=== PATIENT | male | born 1960 | race Caucasian/White ===

== ENCOUNTER 2017-08-22 10:40 | Inpatient (IN) | payer MEDICAID, OTHER ==
[2017-08-22] MEDS ORDERED: Sodium Chloride 0.9% 1,000 ML IV STA (11:27)
[2017-08-22] MEDS ORDERED: Morphine 4 mg/ml ISec IVP STA (11:27)
[2017-08-22 12:34] LABS: ALB/GLOB RATIO 1.5 (1.1-1.8); ALKALINE PHOSPHATASE 85 U/L (38-126); ALT/SGPT 45 U/L (7-56); AMYLASE 103 U/L (35-125); AST/SGOT 84 U/L (17-59); BILIRUBIN,TOTAL 1.9 mg/dL (0.2-1.3); BLOOD UREA NITROGEN 13 mg/dL (7-21); CALCIUM 8.9 mg/dL (8.4-10.5); CARBON DIOXIDE 31 mmol/L (21-33); CHLORIDE 102 mmol/L (98-107); GFR AFRICAN-AMERICAN > 60; GLUCOSE,RANDOM 123 mg/dL (70-110); LIPASE 98 U/L (23-300); POTASSIUM 3.7 mmol/L (3.6-5.0); SODIUM 141 mmol/L (132-148); TOTAL PROTEIN 6.5 g/dL (5.8-8.3)
[2017-08-22 12:46] LABS: BASO # 0.01 K/mm3 (0.0-2.0); BASO % 0.1 % (0.0-3.0); EOS # 0.1 (0.0-0.7); EOS % 1.4 % (1.5-5.0); GRAN # 5.19 (1.4-6.5); GRAN % 72.3 % (50.0-68.0); HEMATOCRIT 39.4 % (42.0-52.0); LYMPH # 1.5 (1.2-3.4); LYMPH % 20.8 % (22.0-35.0); MEAN CELL VOLUME 85.1 fl (80.0-105.0); MEAN CORPUSCULAR HEMOGLOBIN 30.5 pg (25.0-35.0); MEAN CORPUSCULAR HGB CONC 35.8 g/dl (31.0-37.0); MEAN PLATELET VOLUME 11.7 fl (7.0-11.0); MONO # 0.4 (0.1-0.6); MONO % 5.4 % (1.0-6.0); RED CELL DISTRIBUTION WIDTH 12.3 % (11.5-14.5); WHITE BLOOD COUNT 7.2 10^3/ul (4.5-11.0)
[2017-08-22 12:50] LABS: TROPONIN I < 0.01 ng/mL
--- NOTE | 2017-08-22 12:50 | RAD ---
HISTORY: epigastric pain COMPARISON: No prior. FINDINGS: LUNGS: No active pulmonary disease. PLEURA: No significant pleural effusion identified, no pneumothorax apparent. CARDIOVASCULAR: Normal. OSSEOUS STRUCTURES: No significant abnormalities. VISUALIZED UPPER ABDOMEN: Normal. OTHER FINDINGS: None. IMPRESSION: No active disease.
--- NOTE | 2017-08-22 13:00 | ED PDOC ---
Arrival/HPI - General Chief Complaint: Abdominal Pain Time Seen by Provider: 08/22/17 11:09 Historian: Patient - History of Present Illness Narrative History of Present Illness (Text): 08/22/17 13:16 Patient c/o upper abdominal pain started for 4-5 days, associated with nausea. Patient denies vomiting/diarrhea/fever/chest pain/sob/fever. Symptom Course: Unchanged Quality: Aching Severity Level: 8 Past Medical History - Provider Review Nursing Documentation Reviewed: Yes - Infectious Disease Hx of Infectious Diseases: None - Tetanus Immunization Tetanus Immunization: Unknown - Cardiac Hx Cardiac Disorders: Yes Hx Hypertension: Yes - Pulmonary Hx Respiratory Disorders: No - Neurological Hx Neurological Disorder: Yes (brain aneurysm) - HEENT Hx HEENT Disorder: No - Renal Hx Renal Disorder: No - Endocrine/Metabolic Hx Endocrine Disorders: No - Hematological/Oncological Hx Blood Disorders: Yes Hx Anemia: Yes Hx Blood Transfusions: Yes Hx Blood Transfusion Reaction: No - Integumentary Hx Dermatological Disorder: No - Musculoskeletal/Rheumatological Hx Musculoskeletal Disorders: No - Gastrointestinal Hx Gastrointestinal Disorders: No - Genitourinary/Gynecological Hx Genitourinary Disorders: No - Psychiatric Hx Psychophysiologic Disorder: No Hx Substance Use: No - Surgical History Other/Comment: aneurysm- brain - Anesthesia Hx Anesthesia: Yes Hx Anesthesia Reactions: No Hx Malignant Hyperthermia: No Family/Social History Family/Social History: No Known Family HX Smoking Status: Former Smoker Hx Alcohol Use: No Hx Substance Use: No Allergies/Home Meds Allergies/Adverse Reactions: Allergies No Known Allergies Allergy (Verified 08/22/17 11:19) Home Medications: Home Meds Medication Instructions Recorded Confirmed Unobtainable 08/22/17 08/22/17 Review of Systems - Physician Review All systems were reviewed & negative as marked: Yes - Review of Systems Gastrointestinal: Abdominal Pain, Nausea Physical Exam Vital Signs Reviewed: No Vital Signs Temp Pulse Resp BP Pulse Ox 08/22/17 15:50 68 159/97 H 08/22/17 11:20 98 F 65 16 161/98 H 97 Temperature: Afebrile Blood Pressure: Hypertensive Pulse: Regular Respiratory Rate: Normal Appearance: Positive for: Non-Toxic, Uncomfortable Pain Distress: Mild Mental Status: Positive for: Alert and Oriented X 3 - Systems Exam Head: Present: Atraumatic, Normocephalic Pupils: Present: PERRL Mouth: Present: Moist Mucous Membranes Neck: Present: Normal Range of Motion Respiratory/Chest: Present: Clear to Auscultation, Good Air Exchange. No: Respiratory Distress Cardiovascular: Present: Regular Rate and Rhythm Abdomen: Present: Tenderness (epigastric, RUQ), Guarding, Other (pos Lee sign ). No: Distention Upper Extremity: Present: Normal Inspection, Normal ROM. No: Edema Lower Extremity: Present: Normal Inspection, NORMAL PULSES. No: Edema, Swelling Neurological: Present: Speech Normal, Motor Func Grossly Intact, Normal Sensory Function Skin: Present: Warm, Dry. No: Rashes Psychiatric: Present: Alert, Oriented x 3, Normal Insight Medical Decision Making ED Course and Treatment: 08/22/17 16:40 Case was d/w patient's PMD who instructed to admit to Hospitalist. Case was d/w Surgeon national sales who requested residential worker to evaluate this patient. Case was d/w Hospitalist Dr. Moses who accepted patient for admission. - Lab Interpretations Lab Results: 08/22/17 12:10 08/22/17 12:10 Lab Results 08/22/17 12:50: PT 10.6, INR 0.98, APTT 30.6 08/22/17 12:10: Sodium 141, Potassium 3.7, Chloride 102, Carbon Dioxide 31, Anion Gap 12, BUN 13, Creatinine 0.8, Est GFR ( Amer) > 60, Est GFR (Non- Af Amer) > 60, Random Glucose 123 H, Calcium 8.9, Total Bilirubin 1.9 H, AST 84 H, ALT 45, Alkaline Phosphatase 85, Troponin I < 0.01 D, Total Protein 6.5, Albumin 3.9, Globulin 2.6, Albumin/Globulin Ratio 1.5, Amylase 103, Lipase 98 08/22/17 12:10: WBC 7.2 D, RBC 4.63, Hgb 14.1, Hct 39.4 L, MCV 85.1, MCH 30.5, MCHC 35.8, RDW 12.3, Plt Count 161, MPV 11.7 H, Gran % 72.3 H, Lymph % (Auto) 20.8 L, [place] % (Auto) 5.4, Eos % (Auto) 1.4 L, Baso % (Auto) 0.1, Gran # 5.19, Lymph # 1.5, [place] # 0.4, Eos # 0.1, Baso # 0.01 - RAD Interpretation Radiology Orders: 08/22/17 11:25 CHEST PORTABLE [RAD] Stat 08/22/17 11:26 ABDOMEN COMPLETE [US] Stat - Medication Orders Current Medication Orders: Discontinued Medications Clonidine HCl (Catapres) 0.2 mg PO STAT STA Stop: 08/22/17 15:22 Last Admin: 08/22/17 15:50 Dose: MAR Pulse and Blood Pressure Document 08/22/17 15:50 NH (Rec: 08/22/17 15:50 NH [id number]) Pulse Pulse Rate (60-90) 68 Blood Pressure Blood Pressure (100/60-150/90) 159/97 Sodium Chloride (Sodium Chloride 0.9%) 1,000 mls @ 999 mls/hr IV .Q1H1M STA Stop: 08/22/17 12:27 Last Admin: 08/22/17 11:58 Dose: 999 mls/hr eMAR Start Stop Document 08/22/17 11:58 MR (Rec: 08/22/17 11:58 MR [id number]) Intravenous Solution Start Date 08/22/17 Start Time 11:58 End Date 08/22/17 End time 12:58 Total Infusion Time 60 Morphine Sulfate (Morphine) 4 mg IVP STAT STA Stop: 08/22/17 11:28 Last Admin: 08/22/17 11:58 Dose: Not Given Non-Admin Reason: Patient Refused Pantoprazole Sodium (Protonix Inj) 40 mg IVP STAT STA Stop: 08/22/17 11:28 Last Admin: 08/22/17 11:57 Dose: 40 mg IVP Administration Document 08/22/17 11:57 MR (Rec: 08/22/17 11:57 MR [id number]) Charges for Administration # of IVP Administrations 1 Disposition/Present on Arrival - Present on Arrival Any Indicators Present on Arrival: No History of DVT/PE: No History of Uncontrolled Diabetes: No Urinary Catheter: No History of Decub. Ulcer: No History Surgical Site Infection Following: None - Disposition Have Diagnosis and Disposition been Completed?: Yes Diagnosis: Cholecystitis Disposition: HOSPITALIZED Disposition Time: 16:43 Condition: FAIR Referrals: Ant Villalpando MD [Primary Care Provider] - Follow up with primary Forms: [employer] (Citizen Of [place])
[2017-08-22 13:03] LABS: INR 0.98 (0.93-1.08); PARTIAL THROMBOPLASTIN TIME 30.6 Seconds (23.7-30.8)
--- NOTE | 2017-08-22 14:53 | US ---
HISTORY: upper abdominal pain COMPARISON: None. TECHNIQUE: Sonographic evaluation of the abdomen. FINDINGS: LIVER: Measures 18.3 cm. Diffusely increased echogenicity of the liver parenchyma. Consistent with mild diffuse fatty infiltration of the liver. No focal mass. Smooth contour. No biliary ductal dilatation. GALLBLADDER: Cholelithiasis. Mural thickening up to 5 mm. No pericholecystic fluid. No sonographic Lee sign. Findings are equivocal for cholecystitis. COMMON BILE DUCT: Measures 5 mm. No stones. No dilatation. PANCREAS: Unremarkable as visualized. No mass. No ductal dilatation. RIGHT KIDNEY: Measures 10.1cm. Normal echogenicity. No calculus, mass, or hydronephrosis. LEFT KIDNEY: Measures 10.6cm. Normal echogenicity. No calculus, mass, or hydronephrosis. SPLEEN: Normal in size and contour. No mass. AORTA: No aneurysmal dilatation. IVC: Unremarkable. OTHER FINDINGS: None. IMPRESSION: Cholelithiasis with mural thickening but no pericholecystic fluid or sonographic Lee sign. The findings are equivocal for cholecystitis. Mild hepatomegaly with fatty infiltration of the liver. No evidence of biliary obstruction.
[2017-08-22] MEDS ORDERED: Piperacillin/Tazobact 3.375 gm 100 ML IVPB STA (16:44)
--- NOTE | 2017-08-22 17:00 | CP.PCM.CON ---
History of Present Illness - History of Present Illness History of Present Illness: Surgery Note for Dr. Connelly HPI: Pt was seen and examined at bedside. Pt is a 57 y/o male who presents to the ED for a constant and localized epigastric pain which has progressivley worsened since Saturday night. Pt states that the pain worsens with eating and any increased abd pressure. Pt admits to passing gas earlier today and last ate at 10 in the morning. Pt denies any n/v/c/d/hematemesis/hematochezia. According to the family, this is the first episode of this type of pain. PMH: HTN, Brain aneurysm, DVT PSH: Evacuation of hematoma in the brain Review of Systems - Constitutional Constitutional: absent: Fever, Headache - Gastrointestinal Gastrointestinal: Abdominal Pain, Dysphagia. absent: Constipation, Diarrhea, Nausea, Vomiting Past Patient History - Infectious Disease Hx of Infectious Diseases: None - Tetanus Immunizations Tetanus Immunization: Unknown - Past Medical History & Family History Past Medical History?: Yes - Past Social History Smoking Status: Former Smoker - CARDIAC Hx Cardiac Disorders: Yes Hx Hypertension: Yes - PULMONARY Hx Respiratory Disorders: No - NEUROLOGICAL Hx Neurological Disorder: Yes (brain aneurysm) - HEENT Hx HEENT Problems: No - RENAL Hx Chronic Kidney Disease: No - ENDOCRINE/METABOLIC Hx Endocrine Disorders: No - HEMATOLOGICAL/ONCOLOGICAL Hx Blood Disorders: Yes Hx Anemia: Yes Hx Blood Transfusions: Yes Hx Blood Transfusion Reaction: No - INTEGUMENTARY Hx Dermatological Problems: No - MUSCULOSKELETAL/RHEUMATOLOGICAL Hx Musculoskeletal Disorders: No - GASTROINTESTINAL Hx Gastrointestinal Disorders: No - GENITOURINARY/GYNECOLOGICAL Hx Genitourinary Disorders: No - PSYCHIATRIC Hx Psychophysiologic Disorder: No Hx Substance Use: No - SURGICAL HISTORY Other/Comment: aneurysm- brain - ANESTHESIA Hx Anesthesia: Yes Hx Anesthesia Reactions: No Hx Malignant Hyperthermia: No Meds Allergies/Adverse Reactions: Allergies Allergy/AdvReac Type Severity Reaction Status Date / Time No Known Allergies Allergy Verified 08/22/17 11:19 - Medications Medications: Current Medications Piperacillin Sod/Tazobactam Sod (Zosyn 3.375 In Ns 100ml) 100 mls @ 200 mls/hr IVPB STAT STA PRN Reason: Protocol Stop: 08/22/17 17:13 Physical Exam - Constitutional Appears: Well, Non-toxic, No Acute Distress - Head Exam Head Exam: ATRAUMATIC, NORMAL INSPECTION, NORMOCEPHALIC - ENT Exam ENT Exam: Mucous Membranes Moist - Respiratory Exam Respiratory Exam: Clear to Auscultation Bilateral, NORMAL BREATHING PATTERN - Cardiovascular Exam Cardiovascular Exam: REGULAR RHYTHM, +S1, +S2 - GI/Abdominal Exam GI & Abdominal Exam: Normal Bowel Sounds, Tenderness. absent: Distended, Firm, Guarding, Hernia, Rigid Additional comments: Positive Lee's sign - Extremities Exam Extremities exam: Positive for: full ROM, normal inspection - Back Exam Back exam: NORMAL INSPECTION - Neurological Exam Neurological exam: Alert, CN II-XII Intact, Normal Gait, Oriented x3, Reflexes Normal - Psychiatric Exam Psychiatric exam: Normal Affect, Normal Mood - Skin Skin Exam: Dry, Intact, Normal Color Results - Vital Signs Recent Vital Signs: Last Vital Signs Temp 98 F 08/22/17 11:20 Pulse 68 08/22/17 15:50 Resp 16 08/22/17 11:20 BP 159/97 H 08/22/17 15:50 Pulse Ox 97 08/22/17 11:20 - Labs Result Diagrams: 08/22/17 12:10 08/22/17 12:10 Labs: Laboratory Results - last 24 hr 08/22/17 08/22/17 08/22/17 12:10 12:10 12:50 WBC 7.2 D RBC 4.63 Hgb 14.1 Hct 39.4 L MCV 85.1 MCH 30.5 MCHC 35.8 RDW 12.3 Plt Count 161 MPV 11.7 H Gran % 72.3 H Lymph % (Auto) 20.8 L [place] % (Auto) 5.4 Eos % (Auto) 1.4 L Baso % (Auto) 0.1 Gran # 5.19 Lymph # 1.5 [place] # 0.4 Eos # 0.1 Baso # 0.01 PT 10.6 INR 0.98 APTT 30.6 Sodium 141 Potassium 3.7 Chloride 102 Carbon Dioxide 31 Anion Gap 12 BUN 13 Creatinine 0.8 Est GFR ( Amer) > 60 Est GFR (Non-Af Amer) > 60 Random Glucose 123 H Calcium 8.9 Total Bilirubin 1.9 H AST 84 H ALT 45 Alkaline Phosphatase 85 Troponin I < 0.01 D Total Protein 6.5 Albumin 3.9 Globulin 2.6 Albumin/Globulin Ratio 1.5 Amylase 103 Lipase 98 Assessment & Plan (1) Cholecystitis Status: Acute - Assessment and Plan (Free Text) Assessment: 57 M w Cholelithiasis VSS NO leukocytosis -NPO -IVF -Mohinder -DONY Concepcion - Date & Time Date: 08/22/17 Time: 17:05
[2017-08-22] MEDS ORDERED: Sodium Chloride 0.9% 1,000 ML IV ONE (17:11)
[2017-08-22] MEDS ORDERED: HYDROmorphone 0.5 mg/0.5 ml ISec IVP PRN (17:12)
[2017-08-22] MEDS ORDERED: Metoprolol 1 mg/ml Inj IVP PRN (17:19)
--- NOTE | 2017-08-22 17:37 | CARD ---
APPROVED REPORT EKG Measurement Heart [id number] <Conclusion> Normal sinus rhythm with sinus arrhythmia Moderate voltage criteria for LVH, may be normal variant ST elevation, consider early repolarization, pericarditis, or injury Abnormal ECG
--- NOTE | 2017-08-22 17:40 | CP.PCM.HP ---
<Cong Baugh - Last Filed: 08/22/17 18:26> History of Present Illness - History of Present Illness History of Present Illness: 57 year old male with PMH of brain aneurysm with clipping and HTN presents with 5 day history of non radiating epigastric pain. PAtient states he has never felt this pain before. Patient states the pain began on Saturday when it was a 7 /10 and today it went up to 10/10 which prompted him to come to the hospital. He describes the pain as "pressure" and denies any radiation to the back. He states the pain is worse with laughter and with food. His last meal was rice pudding which he had around 10 am. He did not take anything to help alleviate the pain. He denies any SOB, CP, N/F/D/F/C, fever, sore throat, revent travel, sick contacts or any other complains. PMH: brain aneurysm 3 years ago, HTN PSH: clipping of aneurysm in brain Allergies: NKDA Fam HX: none significant Social: denies alcohol, tobacco, or illicit drug use Medications: See MAR Present on Admission - Present on Admission Any Indicators Present on Admission: No Review of Systems - Constitutional Constitutional: absent: Anorexia, Chills, Fatigue, Fever, Headache, Lethargy, Malaise, Weakness - EENT Eyes: absent: Blurred Vision, Change in Vision Ears: absent: Decreased Hearing Nose/Mouth/Throat: absent: Nasal Congestion, Nasal Discharge, Sore Throat - Cardiovascular Cardiovascular: absent: Chest Pain, Diaphoresis, Dyspnea, Irregular Heart Rhythm , Pain Radiating to Arm/Neck/Jaw, Lightheadedness, Rapid Heart Rate - Respiratory Respiratory: absent: Dyspnea, Wheezing, Chest Congestion - Gastrointestinal Gastrointestinal: Abdominal Pain. absent: Constipation, Diarrhea, Dysphagia, Nausea, Vomiting Additional comments: Complains of mid epigastric pain - Genitourinary Genitourinary: absent: Change in Urinary Stream, Difficulty Urinating, Dysuria - Musculoskeletal Musculoskeletal: absent: Muscle Weakness, Numbness, Tingling - Integumentary Integumentary: absent: Rash - Neurological Neurological: absent: Abnormal Hearing, Disequilibrium, Numbness, Headaches, Paresthesias, Tingling, Vertigo, Weakness Past Patient History - Infectious Disease Hx of Infectious Diseases: None - Tetanus Immunizations Tetanus Immunization: Unknown - Past Medical History & Family History Past Medical History?: Yes - Past Social History Smoking Status: Former Smoker - CARDIAC Hx Cardiac Disorders: Yes Hx Hypertension: Yes - PULMONARY Hx Respiratory Disorders: No - NEUROLOGICAL Hx Neurological Disorder: Yes (brain aneurysm) - HEENT Hx HEENT Problems: No - RENAL Hx Chronic Kidney Disease: No - ENDOCRINE/METABOLIC Hx Endocrine Disorders: No - HEMATOLOGICAL/ONCOLOGICAL Hx Blood Disorders: Yes Hx Anemia: Yes Hx Blood Transfusions: Yes Hx Blood Transfusion Reaction: No - INTEGUMENTARY Hx Dermatological Problems: No - MUSCULOSKELETAL/RHEUMATOLOGICAL Hx Musculoskeletal Disorders: No - GASTROINTESTINAL Hx Gastrointestinal Disorders: No - GENITOURINARY/GYNECOLOGICAL Hx Genitourinary Disorders: No - PSYCHIATRIC Hx Psychophysiologic Disorder: No Hx Substance Use: No - SURGICAL HISTORY Other/Comment: aneurysm- brain - ANESTHESIA Hx Anesthesia: Yes Hx Anesthesia Reactions: No Hx Malignant Hyperthermia: No Meds Allergies/Adverse Reactions: Allergies Allergy/AdvReac Type Severity Reaction Status Date / Time No Known Allergies Allergy Verified 08/22/17 11:19 Physical Exam - Constitutional Appears: Non-toxic, No Acute Distress - Head Exam Head Exam: ATRAUMATIC, NORMAL INSPECTION, NORMOCEPHALIC - Eye Exam Eye Exam: EOMI, Normal appearance, PERRL - ENT Exam ENT Exam: Mucous Membranes Moist, Normal Exam - Neck Exam Neck exam: Positive for: Normal Inspection. Negative for: Lymphadenopathy, Thyromegaly - Respiratory Exam Respiratory Exam: Clear to Auscultation Bilateral, NORMAL BREATHING PATTERN - Cardiovascular Exam Cardiovascular Exam: REGULAR RHYTHM, +S1, +S2 - GI/Abdominal Exam GI & Abdominal Exam: Rebound, Tenderness Additional comments: Tenderness to palpation in mid epigastric region, positive rebound tenderness, positive medina sign - Extremities Exam Extremities exam: Positive for: normal inspection - Back Exam Back exam: NORMAL INSPECTION - Neurological Exam Neurological exam: Alert, Oriented x3 - Skin Skin Exam: Normal Color Results - Vital Signs Recent Vital Signs: Last Vital Signs Temp 98 F 08/22/17 11:20 Pulse 68 08/22/17 15:50 Resp 16 08/22/17 11:20 BP 159/97 H 08/22/17 15:50 Pulse Ox 97 08/22/17 11:20 - Labs Result Diagrams: 08/22/17 12:10 08/22/17 12:10 Labs: Laboratory Results - last 24 hr 08/22/17 08/22/17 08/22/17 12:10 12:10 12:50 WBC 7.2 D RBC 4.63 Hgb 14.1 Hct 39.4 L MCV 85.1 MCH 30.5 MCHC 35.8 RDW 12.3 Plt Count 161 MPV 11.7 H Gran % 72.3 H Lymph % (Auto) 20.8 L [place] % (Auto) 5.4 Eos % (Auto) 1.4 L Baso % (Auto) 0.1 Gran # 5.19 Lymph # 1.5 [place] # 0.4 Eos # 0.1 Baso # 0.01 PT 10.6 INR 0.98 APTT 30.6 Sodium 141 Potassium 3.7 Chloride 102 Carbon Dioxide 31 Anion Gap 12 BUN 13 Creatinine 0.8 Est GFR ( Amer) > 60 Est GFR (Non-Af Amer) > 60 Random Glucose 123 H Calcium 8.9 Total Bilirubin 1.9 H AST 84 H ALT 45 Alkaline Phosphatase 85 Troponin I < 0.01 D Total Protein 6.5 Albumin 3.9 Globulin 2.6 Albumin/Globulin Ratio 1.5 Amylase 103 Lipase 98 Assessment & Plan - Assessment and Plan (Free Text) Assessment: 57 yo mlae with PMH of brain aneurysm, HTN presenting with mid epigastric pain for 5 days. Patient admitted and evaluated for abdominal pain and possible cholecystitis. Plan: 1. Epigastric pain-possible cholecystitis -EKG ordered and obtained, NSR with sinus arythmia, LVH moderate voltage maybe normal variant, ST elevation, consider early repolarization, pericarditis, or injury, abnormal ECG -Initial troponin negative, follow up additional if needed -Abdominal US showing cholelithiasis, mural thickening without pericholecystic fluid, equivalent cholecystitis -Patient NPO -hydromorphone for pain -D5W @125 -Surgery consulted, Dr. Connelly -Labs ordered, normal electrolytes -HH stable -started on rocephin and metronidazole -HIDA scan ordred per surgery, awaiting results 2. HTN- chronic -BP 159/97 -started on lopressor 5 Q6 PRN -continue to monitor 3. GI/DVT prophylaxis -Protonix IV -lovenox Patient reviewed and discussed with the attending, Dr. Turner <Raquel Turner - Last Filed: 08/24/17 13:38> Results - Vital Signs Recent Vital Signs: Last Vital Signs Temp 98.5 F 08/23/17 16:00 Pulse 63 08/23/17 19:02 Resp 20 08/23/17 16:00 BP 145/89 08/23/17 19:02 Pulse Ox 100 08/23/17 16:00 - Labs Result Diagrams: 08/24/17 06:30 08/24/17 06:30 Labs: Laboratory Results - last 24 hr 08/24/17 08/24/17 06:30 06:30 WBC 6.7 D RBC 4.97 Hgb 14.8 Hct 42.1 MCV 84.7 MCH 29.8 MCHC 35.2 RDW 12.6 Plt Count 167 MPV 11.4 H Sodium 144 Potassium 3.6 Chloride 107 Carbon Dioxide 26 Anion Gap 15 BUN 13 Creatinine 0.9 Est GFR ( Amer) > 60 Est GFR (Non-Af Amer) > 60 Random Glucose 95 Calcium 8.7 Magnesium 2.1 Total Bilirubin 2.2 H AST 140 H D ALT 251 H Alkaline Phosphatase 139 H D Total Protein 6.2 Albumin 3.5 Globulin 2.7 Albumin/Globulin Ratio 1.3 Attending/Attestation - Attestation I have personally seen and examined this patient.: Yes I have fully participated in the care of the patient.: Yes I have reviewed all pertinent clinical information: Yes Notes (Text): I have seen and examined the patient at bedside. Agree with the above note with the following additions/ exceptions: Briefly this is 57 year old male with history of brain aneurysm s/p clipping and HTN who presented with epigastric pain and found to have choleithiasis and suspected acute cholecystitis. He will be NPO and will start IVF, analgesics, antiemetics and IV antibiotics. EKG was noted to be abnormal. Will repeat ekg and trend enzymes. Will consult tape stringer. Surgery consult appreciated. HIDA pending. Upon discharge patient will follow up with Dr Villalpando/ [facility] [place] clinic. Dr Raquel Turner
[2017-08-22] MEDS: Dextrose 5%/0.45% NS 1,000 ML IV SCH (18:47)
[2017-08-22 21:36] VITALS: BMI 25.0
[2017-08-22] MEDS ORDERED: Pneumococcal 23-Valent Vaccine IM ONE (21:36)
[2017-08-22] MEDS ORDERED: Influenza Vaccine 60 mcg/0.5 mL SYR (4YR UP) IM ONE (21:36)
[2017-08-22 22:27] LABS: TROPONIN I < 0.01 ng/mL
[2017-08-22] MEDS: metroNIDAZOLE IV 500 mg/100 ml 500 MG/100 ML BAG IVPB SCH (23:58)
[2017-08-23] MEDS: metroNIDAZOLE IV 500 mg/100 ml 500 MG/100 ML BAG IVPB SCH ×4 (05:44→21:30)
[2017-08-23 06:23] LABS: HEMATOCRIT 40.8 % (42.0-52.0); MEAN CELL VOLUME 84.5 fl (80.0-105.0); MEAN CORPUSCULAR HGB CONC 35.5 g/dl (31.0-37.0); MEAN PLATELET VOLUME 11.9 fl (7.0-11.0); RED CELL DISTRIBUTION WIDTH 12.4 % (11.5-14.5); WHITE BLOOD COUNT 5.5 10^3/ul (4.5-11.0)
[2017-08-23 06:51] LABS: BLOOD UREA NITROGEN 10 mg/dL (7-21); CALCIUM 8.7 mg/dL (8.4-10.5); CARBON DIOXIDE 28 mmol/L (21-33); CHLORIDE 108 mmol/L (98-107); GFR AFRICAN-AMERICAN > 60; GLUCOSE,RANDOM 126 mg/dL (70-110); POTASSIUM 3.3 mmol/L (3.6-5.0); SODIUM 143 mmol/L (132-148)
[2017-08-23 07:15] LABS: TROPONIN I < 0.01 ng/mL
[2017-08-23] MEDS: Dextrose 5%/0.45% NS 1,000 ML IV SCH ×4 (08:46→17:13)
[2017-08-23] MEDS: Enoxaparin 30 mg Syringe SC SCH (09:17)
[2017-08-23] MEDS: cefTRIAXone 1 gm 1 GM/100 ML BAG IVPB SCH (09:18)
[2017-08-23 10:10] LABS: URINE APPEARANCE SL CLOUDY (CLEAR); URINE BILIRUBIN MODERATE (NEGATIVE); URINE BLOOD NEGATIVE (NEGATIVE); URINE COLOR YELLOW (YELLOW); URINE GLUCOSE (UA) NEGATIVE (NEGATIVE); URINE KETONE NEGATIVE (NEGATIVE); URINE LEUKOCYTE ESTERASE NEGATIVE Leu/uL (NEGATIVE); URINE PROTEIN TRACE mg/dL (<30 mg/dL)
[2017-08-23 10:19] LABS: URINE WBC NEGATIVE /hpf (0-6)
--- NOTE | 2017-08-23 10:54 | CP.PCM.PN ---
Subjective - Date & Time of Evaluation Date of Evaluation: 08/23/17 Time of Evaluation: 10:51 - Subjective Subjective: Surgery Pt s&e. NAEON. Pain controlled. Denies F/C/N/V/D/Cp/SOB. + amb. + avoid. Objective - Vital Signs/Intake and Output Vital Signs (last 24 hours): Temp Pulse Resp BP Pulse Ox 98.2 F 51 L 18 144/91 H 97 08/23/17 08:08 08/23/17 08:08 08/23/17 08:08 08/23/17 08:08 08/23/17 08:08 Intake and Output: 08/23/17 08/23/17 06:59 18:59 Intake Total 0 Balance 0 - Medications Medications: Current Medications Acetaminophen (Tylenol 325mg Tab) 650 mg PO Q4 PRN PRN Reason: Fever >100.4 F Enoxaparin Sodium (Lovenox) 30 mg SC DAILY ZAKI PRN Reason: Protocol Last Admin: 08/23/17 09:17 Dose: 30 mg Hydromorphone HCl (Dilaudid) 0.5 mg IVP Q4H PRN PRN Reason: Pain, severe (8-10) Ceftriaxone Sodium (Rocephin 1 Gram Ivpb) 1 gm in 100 mls @ 100 mls/hr IVPB DAILY ZAKI PRN Reason: Protocol Last Admin: 08/23/17 09:18 Dose: 100 mls/hr Metronidazole (Flagyl) 500 mg in 100 mls @ 100 mls/hr IVPB Q8 ZAKI PRN Reason: Protocol Last Admin: 08/23/17 05:44 Dose: 100 mls/hr Dextrose/Sodium Chloride (Dextrose 5%/0.45% Ns 1000 Ml) 1,000 mls @ 125 mls/hr IV .Q8H ZAKI Last Admin: 08/23/17 09:17 Dose: 125 mls/hr Potassium Chloride (Potassium Chloride 20 Meq/100 Ml) 20 meq in 100 mls @ 50 mls/hr IVPB Q2H ZAKI Stop: 08/23/17 11:29 Last Admin: 08/23/17 10:36 Dose: 50 mls/hr Metoprolol Tartrate (Lopressor) 5 mg IVP Q6 PRN PRN Reason: Other Ondansetron HCl (Zofran Inj) 4 mg IVP Q4H PRN PRN Reason: Nausea/Vomiting - Labs Labs: 08/23/17 05:40 08/23/17 05:40 PT 10.6 Seconds (9.9-11.8) 08/22/17 12:50 INR 0.98 (0.93-1.08) 08/22/17 12:50 APTT 30.6 Seconds (23.7-30.8) 08/22/17 12:50 - Constitutional Appears: No Acute Distress - Head Exam Head Exam: ATRAUMATIC, NORMAL INSPECTION, NORMOCEPHALIC - Eye Exam Eye Exam: EOMI, Normal appearance, PERRL Pupil Exam: NORMAL ACCOMODATION, PERRL - ENT Exam ENT Exam: Mucous Membranes Moist, Normal Exam - Neck Exam Neck Exam: Full ROM, Normal Inspection. absent: Lymphadenopathy - Respiratory Exam Respiratory Exam: Clear to Ausculation Bilateral, NORMAL BREATHING PATTERN - Cardiovascular Exam Cardiovascular Exam: REGULAR RHYTHM, +S1, +S2. absent: Murmur - GI/Abdominal Exam GI & Abdominal Exam: Soft, Normal Bowel Sounds. absent: Distended, Tenderness - Extremities Exam Extremities Exam: Full ROM, Normal Capillary Refill, Normal Inspection. absent : Joint Swelling, Pedal Edema - Back Exam Back Exam: NORMAL INSPECTION - Neurological Exam Neurological Exam: Alert, Awake, CN II-XII Intact, Normal Gait, Oriented x3 - Psychiatric Exam Psychiatric exam: Normal Affect, Normal Mood - Skin Skin Exam: Dry, Intact, Normal Color, Warm Assessment and Plan (1) Cholecystitis Status: Acute - Assessment and Plan (Free Text) Assessment: Cholelithiasis r/o cholecystitis No leukocytosis -F/U HIDA today -If HIDA + for cholecystitis we will schedule for OR, If neg, OK to DC and elective outpatient surgery recommended. -NPO -IVF -Medical management DW Dr. Connelly
--- NOTE | 2017-08-23 12:49 | CARD ---
APPROVED REPORT EKG Measurement Heart [id number] <Conclusion> Sinus bradycardia Moderate voltage criteria for LVH, may be normal variant ST elevation, consider early repolarization. ST-T wave abnormality.
--- NOTE | 2017-08-23 14:03 | CP.PCM.PN ---
Addendum entered and electronically signed by Joao Ho DO 08/23/17 14:03: Assessment and Plan: - EKG changes noted, Cardiology consulted- appreciate input, ECHO pending Original Note: <Joao Ho - Last Filed: 08/23/17 13:53> Subjective - Date & Time of Evaluation Date of Evaluation: 08/23/17 Time of Evaluation: 07:55 - Subjective Subjective: Subjective: Patient seen and examined at bedside. Resting comfortably in bed. No acute overnight events. Patient states abdominal pain has resolved. Offers no new complaints at this time. Denies f/c/cp/sob/n/v/d/c/urinary sxs. Physical Examination: - Constitutional Appears: Non-toxic, No Acute Distress - Head Exam Head Exam: ATRAUMATIC, NORMAL INSPECTION, NORMOCEPHALIC - Eye Exam Eye Exam: EOMI, Normal appearance, PERRL - ENT Exam ENT Exam: Mucous Membranes Moist, Normal Exam - Neck Exam Neck exam: Positive for: Normal Inspection. Negative for: Lymphadenopathy, Thyromegaly - Respiratory Exam Respiratory Exam: Clear to Auscultation Bilateral, NORMAL BREATHING PATTERN - Cardiovascular Exam Cardiovascular Exam: REGULAR RHYTHM, +S1, +S2 - GI/Abdominal Exam GI & Abdominal Exam: no guarding, no rebound tenderness, + BS - Extremities Exam Extremities exam: Positive for: normal inspection - Back Exam Back exam: NORMAL INSPECTION - Neurological Exam Neurological exam: Alert, Oriented x3 - Skin Skin Exam: Normal Color Assessment and Plan: 57 yo male with PMH of brain aneurysm, HTN presenting with mid epigastric pain for 5 days. Patient admitted and evaluated for abdominal pain and possible cholecystitis. Epigastric pain - resolved - rule out cholecystitis- HIDA pending -Abdominal US showing cholelithiasis, mural thickening without pericholecystic fluid, equivalent cholecystitis -Patient NPO -hydromorphone for pain -D5W @125 -Surgery consulted, Dr. Connelly- appreciate recs- if HIDA positive will schedule for OR, if negative can schedule outpatient for elective surgery - continue with rocephin and metronidzole HTN- chronic -BP 159/97 - c/w lopressor 5 Q6 PRN - continue to monitor GI/DVT prophylaxis -Protonix IV -lovenox Patient seen, case discussed with, and plan approved by attending physician, Dr. Turner. Objective - Vital Signs/Intake and Output Vital Signs (last 24 hours): Temp Pulse Resp BP Pulse Ox 98.2 F 51 L 18 144/91 H 97 08/23/17 08:08 08/23/17 08:08 08/23/17 08:08 08/23/17 08:08 08/23/17 08:08 Intake and Output: 08/23/17 08/23/17 06:59 18:59 Intake Total 0 Balance 0 - Medications Medications: Current Medications Acetaminophen (Tylenol 325mg Tab) 650 mg PO Q4 PRN PRN Reason: Fever >100.4 F Enoxaparin Sodium (Lovenox) 30 mg SC DAILY ZAKI PRN Reason: Protocol Last Admin: 08/23/17 09:17 Dose: 30 mg Hydromorphone HCl (Dilaudid) 0.5 mg IVP Q4H PRN PRN Reason: Pain, severe (8-10) Ceftriaxone Sodium (Rocephin 1 Gram Ivpb) 1 gm in 100 mls @ 100 mls/hr IVPB DAILY ZAKI PRN Reason: Protocol Last Admin: 08/23/17 09:18 Dose: 100 mls/hr Metronidazole (Flagyl) 500 mg in 100 mls @ 100 mls/hr IVPB Q8 ZAKI PRN Reason: Protocol Last Admin: 08/23/17 05:44 Dose: 100 mls/hr Dextrose/Sodium Chloride (Dextrose 5%/0.45% Ns 1000 Ml) 1,000 mls @ 125 mls/hr IV .Q8H ZAKI Last Admin: 08/23/17 09:17 Dose: 125 mls/hr Metoprolol Tartrate (Lopressor) 5 mg IVP Q6 PRN PRN Reason: Other Ondansetron HCl (Zofran Inj) 4 mg IVP Q4H PRN PRN Reason: Nausea/Vomiting - Labs Labs: 08/23/17 05:40 08/23/17 05:40 PT 10.6 Seconds (9.9-11.8) 08/22/17 12:50 INR 0.98 (0.93-1.08) 08/22/17 12:50 APTT 30.6 Seconds (23.7-30.8) 08/22/17 12:50 <Raquel Turner - Last Filed: 08/24/17 13:40> Objective - Vital Signs/Intake and Output Vital Signs (last 24 hours): Temp Pulse Resp BP Pulse Ox 98.5 F 63 20 145/89 100 08/23/17 16:00 08/23/17 19:02 08/23/17 16:00 08/23/17 19:02 08/23/17 16:00 Intake and Output: 08/24/17 08/24/17 06:59 18:59 Intake Total 180 600 Balance 180 600 - Medications Medications: Current Medications Acetaminophen (Tylenol 325mg Tab) 650 mg PO Q4 PRN PRN Reason: Fever >100.4 F Enoxaparin Sodium (Lovenox) 30 mg SC DAILY ZAKI PRN Reason: Protocol Last Admin: 08/24/17 09:51 Dose: 30 mg Hydromorphone HCl (Dilaudid) 0.5 mg IVP Q4H PRN PRN Reason: Pain, severe (8-10) Ceftriaxone Sodium (Rocephin 1 Gram Ivpb) 1 gm in 100 mls @ 100 mls/hr IVPB DAILY ZAKI PRN Reason: Protocol Last Admin: 08/24/17 09:52 Dose: 100 mls/hr Metronidazole (Flagyl) 500 mg in 100 mls @ 100 mls/hr IVPB Q8 ZAKI PRN Reason: Protocol Last Admin: 08/24/17 06:43 Dose: 100 mls/hr Lisinopril (Zestril) 5 mg PO DAILY [facility] Last Admin: 08/24/17 09:52 Dose: 5 mg Ondansetron HCl (Zofran Inj) 4 mg IVP Q4H PRN PRN Reason: Nausea/Vomiting Pantoprazole Sodium (Protonix Inj) 40 mg IVP DAILY [facility] Last Admin: 08/24/17 09:52 Dose: 40 mg - Labs Labs: 08/24/17 06:30 08/24/17 06:30 PT 10.6 Seconds (9.9-11.8) 08/22/17 12:50 INR 0.98 (0.93-1.08) 08/22/17 12:50 APTT 30.6 Seconds (23.7-30.8) 08/22/17 12:50 Attending/Attestation - Attestation I have personally seen and examined this patient.: Yes I have fully participated in the care of the patient.: Yes I have reviewed all pertinent clinical information, including history, physical exam and plan: Yes Notes (Text): I have seen and examined the patient at bedside. Agree with the above note with the following additions/ exceptions: Briefly this is 57 year old male with history of brain aneurysm s/p clipping and HTN who presented with epigastric pain and found to have choleithiasis and suspected acute cholecystitis. He remains NPO. Denies any nausea, vomiting or abdominal pain. Continue IVF, analgesics, antiemetics and IV antibiotics. EKG revealed SB. Will hold lopressor. Cardiac enzymes were negative. Echo result pending.. HIDA result pending. Upon discharge patient will follow up with Dr Villalpando/ [facility] clinic. Dr Raquel Turner
--- NOTE | 2017-08-23 15:31 | CARD ---
APPROVED REPORT EKG Measurement Heart [id number] <Conclusion> Normal sinus rhythm Moderate voltage criteria for LVH, may be normal variant ST elevation, consider early repolarization, T Inversion 3,AVF,
--- NOTE | 2017-08-23 19:33 | CARD ---
APPROVED REPORT EXAM: Two-dimensional and M-mode echocardiogram with Doppler and color Doppler. INDICATION LV Function:SystolicDiastolic 2D DIMENSIONS Left Atrium (2D)3.8 (1.6-4.0cm)IVSd1.1 (0.7-1.1cm) LVDd4.5 (3.9-5.9cm)PWd1.2 (0.7-1.1cm) LVDs3.1 (2.5-4.0cm)FS (%) 32.4 % LVEF (%)60.8 (>50%) M-Mode DIMENSIONS Aortic Root3.00 (2.2-3.7cm)Aortic Cusp Exc.1.50 (1.5-2.0cm) Aortic Valve AoV Peak Xtjpndaa489.0cm/Marta Peak GR.8mmHg Mitral Valve MV E Syssrijn78.0cm/sMV A Itxlubmi18.8cm/sE/A ratio0.9 TDI E/Lateral E'0.0E/Medial E'0.0 Tricuspid Valve TR Peak Jcsiascb047og/sRAP OSELFYZL78gqRuTK Peak Gr.21mmHg [id number] LEFT VENTRICLE The left ventricle is normal size. There is borderline to mild concentric left ventricular hypertrophy. The left ventricular function is normal.EF-55-60% There is normal LV segmental wall motion. Transmitral Doppler flow pattern is Grade III-reversible restrictive diastolic dysfunction. No left ventricle thrombus noted on this study. There is no ventricular septal defect visualized. There is no left ventricular aneurysm. There is no mass noted in the left ventricle. RIGHT VENTRICLE The right ventricle is normal size. There is normal right ventricular wall thickness. The right ventricular systolic function is normal. ATRIA The left atrium size is normal. The right atrium size is normal. The interatrial septum is intact with no evidence for an atrial septal defect. AORTIC VALVE The aortic valve is thickened but opens well. There is trace aortic regurgitation. There is no aortic valvular stenosis. There is no aortic valvular vegetation. MITRAL VALVE The mitral valve is not well visualized. Mitral regurgitation is trace to mild. There is no mitral valve stenosis. There is no evidence of mitral valve prolapse. TRICUSPID VALVE The tricuspid valve leaflets are thickened , but open well. The tricuspid valve leaflets are thickened , but open well. There is mild tricuspid regurgitation.RVSP-31 mof hg. There is no tricuspid valve stenosis. There is no tricuspid valve prolapse or vegetation. PULMONIC VALVE The pulmonary valve is normal in structure. There is trace pulmonic valvular regurgitation. There is no pulmonic valvular stenosis. GREAT VESSELS The aortic root is normal in size. The ascending aorta is normal in size. The pulmonary artery is normal. The IVC is normal in size and collapses >50% with inspiration. PERICARDIAL EFFUSION There is no pleural effusion. There is no pericardial effusion. <Conclusion> The left ventricle is normal size. There is borderline to mild concentric left ventricular hypertrophy. The left ventricular function is normal.EF-55-60% There is trace aortic regurgitation. Mitral regurgitation is trace to mild. The IVC is normal in size and collapses >50% with inspiration. There is no pericardial effusion. No vegetation or thrombus noted.
--- NOTE | 2017-08-23 19:35 | CON ---
DATE: REASON FOR CONSULTATION: Abnormal EKG. HISTORY OF PRESENT ILLNESS: The patient is a 57-year-old [place] male who presented because of abdominal pain for the past 4-5 years associated with nausea. The patient denies any retrosternal chest pain and is unaware of any prior cardiac history in the past. The patient's abdominal ultrasound was consistent with cholelithiasis with mural thickening, but no pericholecystic fluid or sonographic Lee sign. The findings are equivocal for cholecystitis. The patient stated that he has brain hemorrhage 3 years ago and underwent craniotomy for that. No records of his cerebral hemorrhage is present at [facility] for as long as [facility] [employer] can go back. REVIEW OF SYSTEMS: The patient denies any headache, dizziness, or seizures. SOCIAL HISTORY: The patient is a former smoker. He is nondrinker. MEDICATIONS: Dilaudid 0.5 mg intravenously q. 4 hours, Flagyl 500 mg intravenously q. 8 hours, Lopressor 50 mg intravenously q. 6 hours, Lovenox 30 mg once a day, potassium chloride intravenous infusion, Rocephin 1 gram intravenously daily. PHYSICAL EXAMINATION GENERAL: The patient is middle-aged male, who does not appear to be in any distress. VITAL SIGNS: Blood pressure 144/91, heart rate 61, temperature 98.2, respiration 18. HEENT: Normocephalic. NECK: No JVD. CHEST: Clear. HEART: S1 and S2 regular. ABDOMEN: Mild epigastric tenderness. EXTREMITIES: No edema. LABORATORY DATA: Hemoglobin and hematocrit 14.5 and 40.8, white count and platelet count are within normal limits. Today's potassium is 3.3, glucose 126, total of 4 troponins are negative. EKG revealed sinus bradycardia at rate of 62, early repolarization pattern. ASSESSMENT: 1. Acute cholecystitis and cholelithiasis. 2. Mild sinus bradycardia. 3. History of cerebral hemorrhage in the past. CONDITIONS: Continue current intravenous potassium replacement. Hold the pressure of heart rate below 60. Continue IV Dilaudid and optimize hydration, obtain an echocardiogram. Shaheen Rooney MD
[2017-08-24] MEDS: metroNIDAZOLE IV 500 mg/100 ml 500 MG/100 ML BAG IVPB SCH ×3 (06:43→21:22)
[2017-08-24 07:21] LABS: HEMATOCRIT 42.1 % (42.0-52.0); MEAN CELL VOLUME 84.7 fl (80.0-105.0); MEAN CORPUSCULAR HEMOGLOBIN 29.8 pg (25.0-35.0); MEAN CORPUSCULAR HGB CONC 35.2 g/dl (31.0-37.0); MEAN PLATELET VOLUME 11.4 fl (7.0-11.0); RED CELL DISTRIBUTION WIDTH 12.6 % (11.5-14.5); WHITE BLOOD COUNT 6.7 10^3/ul (4.5-11.0)
[2017-08-24 07:48] LABS: ALB/GLOB RATIO 1.3 (1.1-1.8); ALKALINE PHOSPHATASE 139 U/L (38-126); ALT/SGPT 251 U/L (7-56); AST/SGOT 140 U/L (17-59); BILIRUBIN,TOTAL 2.2 mg/dL (0.2-1.3); BLOOD UREA NITROGEN 13 mg/dL (7-21); CALCIUM 8.7 mg/dL (8.4-10.5); CARBON DIOXIDE 26 mmol/L (21-33); CHLORIDE 107 mmol/L (98-107); GFR AFRICAN-AMERICAN > 60; GLUCOSE,RANDOM 95 mg/dL (70-110); MAGNESIUM 2.1 mg/dL (1.7-2.2); POTASSIUM 3.6 mmol/L (3.6-5.0); SODIUM 144 mmol/L (132-148); TOTAL PROTEIN 6.2 g/dL (5.8-8.3)
--- NOTE | 2017-08-24 07:58 | CP.PCM.PN ---
Subjective - Date & Time of Evaluation Date of Evaluation: 08/24/17 Time of Evaluation: 07:53 - Subjective Subjective: General Surgery Note for Dr. Connelly Patient seen and examined this AM. No acute event overnight. Patient resting comfortably with family member at bedside. Patient states pain is well controlled. Patient is tolerating diet. Patient is ambulating without difficulty. HIDA scan was positive so OR saturday. Denies fever/chills, cp, sob, n /v/d. Objective - Vital Signs/Intake and Output Vital Signs (last 24 hours): Temp Pulse Resp BP Pulse Ox 98.5 F 63 20 145/89 100 08/23/17 16:00 08/23/17 19:02 08/23/17 16:00 08/23/17 19:02 08/23/17 16:00 Intake and Output: 08/24/17 08/24/17 06:59 18:59 Intake Total 180 Balance 180 - Medications Medications: Current Medications Acetaminophen (Tylenol 325mg Tab) 650 mg PO Q4 PRN PRN Reason: Fever >100.4 F Enoxaparin Sodium (Lovenox) 30 mg SC DAILY ZAKI PRN Reason: Protocol Last Admin: 08/23/17 09:17 Dose: 30 mg Hydromorphone HCl (Dilaudid) 0.5 mg IVP Q4H PRN PRN Reason: Pain, severe (8-10) Ceftriaxone Sodium (Rocephin 1 Gram Ivpb) 1 gm in 100 mls @ 100 mls/hr IVPB DAILY ZAKI PRN Reason: Protocol Last Admin: 08/23/17 09:18 Dose: 100 mls/hr Metronidazole (Flagyl) 500 mg in 100 mls @ 100 mls/hr IVPB Q8 ZAKI PRN Reason: Protocol Last Admin: 08/24/17 06:43 Dose: 100 mls/hr Metoprolol Tartrate (Lopressor) 5 mg IVP Q6 PRN PRN Reason: Other Last Admin: 08/23/17 16:24 Dose: 5 mg Ondansetron HCl (Zofran Inj) 4 mg IVP Q4H PRN PRN Reason: Nausea/Vomiting Pantoprazole Sodium (Protonix Inj) 40 mg IVP DAILY [facility] Last Admin: 08/23/17 14:14 Dose: 40 mg - Labs Labs: 08/24/17 06:30 08/23/17 05:40 PT 10.6 Seconds (9.9-11.8) 08/22/17 12:50 INR 0.98 (0.93-1.08) 08/22/17 12:50 APTT 30.6 Seconds (23.7-30.8) 08/22/17 12:50 - Constitutional Appears: No Acute Distress - Head Exam Head Exam: ATRAUMATIC, NORMOCEPHALIC - Eye Exam Eye Exam: Normal appearance - ENT Exam ENT Exam: Mucous Membranes Moist - Respiratory Exam Respiratory Exam: NORMAL BREATHING PATTERN - Cardiovascular Exam Cardiovascular Exam: REGULAR RHYTHM - GI/Abdominal Exam GI & Abdominal Exam: Soft. absent: Distended, Firm, Guarding, Rigid, Tenderness , Rebound - Extremities Exam Extremities Exam: Normal Capillary Refill - Back Exam Back Exam: absent: CVA tenderness (L), CVA tenderness (R) - Neurological Exam Neurological Exam: Alert, Awake - Psychiatric Exam Psychiatric exam: Normal Affect, Normal Mood - Skin Skin Exam: Dry, Intact, Normal Color, Warm Assessment and Plan - Assessment and Plan (Free Text) Plan: 57 M with Cholelithiasis and suspected cholecystitis HIDA Scan (+) -OR Saturday for Laparoscopic cholecystectomy -Medical management as per primary -Will ELLE Nguyen PGY1
[2017-08-24] MEDS: Enoxaparin 30 mg Syringe SC SCH (09:51)
[2017-08-24] MEDS: cefTRIAXone 1 gm 1 GM/100 ML BAG IVPB SCH (09:52)
--- NOTE | 2017-08-24 11:56 | CP.PCM.PN ---
Addendum entered and electronically signed by Joao Ho DO 08/24/17 11:57: Addition to Assessment and Plan: EKG changes- ECHO reviewed EF 55-60%, mild concentric left ventricular hypertrophy Original Note: <Joao Ho - Last Filed: 08/24/17 11:52> Subjective - Date & Time of Evaluation Date of Evaluation: 08/24/17 Time of Evaluation: 10:15 - Subjective Subjective: Subjective: Patient seen and examined at bedside. Resting comfortably in bed. Family is at bedside. Asymptomatic bradycardia overnight. Elevated BPs noted. Patient states abdominal pain has resolved. Offers no new complaints at this time. Will attempt to eat today. Denies f/c/cp/sob/n/v/d/c/urinary sxs. Physical Examination: - Constitutional Appears: Non-toxic, No Acute Distress - Head Exam Head Exam: ATRAUMATIC, NORMAL INSPECTION, NORMOCEPHALIC - Eye Exam Eye Exam: EOMI, Normal appearance, PERRL - ENT Exam ENT Exam: Mucous Membranes Moist, Normal Exam - Neck Exam Neck exam: Positive for: Normal Inspection. Negative for: Lymphadenopathy, Thyromegaly - Respiratory Exam Respiratory Exam: Clear to Auscultation Bilateral, NORMAL BREATHING PATTERN - Cardiovascular Exam Cardiovascular Exam: REGULAR RHYTHM, +S1, +S2 - GI/Abdominal Exam GI & Abdominal Exam: no guarding, no rebound tenderness, + BS - Extremities Exam Extremities exam: Positive for: normal inspection - Back Exam Back exam: NORMAL INSPECTION - Neurological Exam Neurological exam: Alert, Oriented x3 - Skin Skin Exam: Normal Color Assessment and Plan: 57 yo male with PMH of brain aneurysm, HTN presenting with mid epigastric pain for 5 days. Patient admitted and evaluated for abdominal pain and possible cholecystitis. Epigastric pain - resolved - rule out cholecystitis- HIDA positive- scheduled for OR on Saturday -Abdominal US showing cholelithiasis, mural thickening without pericholecystic fluid, equivalent cholecystitis -Patient on heart healthy low fat diet -hydromorphone for pain -D5W @125 -Surgery consulted, Dr. Connelly- appreciate recs- HIDA positive will schedule for OR for Saturday - continue with rocephin and metronidzole HTN- chronic - BPs trended, reviewed, and appreciated - started lisinopril today - continue to monitor GI/DVT prophylaxis - Protonix IV - Lovenox Patient seen, case discussed with, and plan approved by attending physician, Dr. Turner. Objective - Vital Signs/Intake and Output Vital Signs (last 24 hours): Temp Pulse Resp BP Pulse Ox 98.5 F 63 20 145/89 100 08/23/17 16:00 08/23/17 19:02 08/23/17 16:00 08/23/17 19:02 08/23/17 16:00 Intake and Output: 08/24/17 08/24/17 06:59 18:59 Intake Total 180 Balance 180 - Medications Medications: Current Medications Acetaminophen (Tylenol 325mg Tab) 650 mg PO Q4 PRN PRN Reason: Fever >100.4 F Enoxaparin Sodium (Lovenox) 30 mg SC DAILY ZAKI PRN Reason: Protocol Last Admin: 08/24/17 09:51 Dose: 30 mg Hydromorphone HCl (Dilaudid) 0.5 mg IVP Q4H PRN PRN Reason: Pain, severe (8-10) Ceftriaxone Sodium (Rocephin 1 Gram Ivpb) 1 gm in 100 mls @ 100 mls/hr IVPB DAILY ZAKI PRN Reason: Protocol Last Admin: 08/24/17 09:52 Dose: 100 mls/hr Metronidazole (Flagyl) 500 mg in 100 mls @ 100 mls/hr IVPB Q8 ZAKI PRN Reason: Protocol Last Admin: 08/24/17 06:43 Dose: 100 mls/hr Lisinopril (Zestril) 5 mg PO DAILY [facility] BEDS AT [facility] Last Admin: 08/24/17 09:52 Dose: 5 mg Ondansetron HCl (Zofran Inj) 4 mg IVP Q4H PRN PRN Reason: Nausea/Vomiting Pantoprazole Sodium (Protonix Inj) 40 mg IVP DAILY [facility]CLUDE 234 BEDS AT THE [facility] Last Admin: 08/24/17 09:52 Dose: 40 mg - Labs Labs: 08/24/17 06:30 08/24/17 06:30 PT 10.6 Seconds (9.9-11.8) 08/22/17 12:50 INR 0.98 (0.93-1.08) 08/22/17 12:50 APTT 30.6 Seconds (23.7-30.8) 08/22/17 12:50 <Raquel Turner B - Last Filed: 08/24/17 13:44> Objective - Vital Signs/Intake and Output Vital Signs (last 24 hours): Temp Pulse Resp BP Pulse Ox 98.5 F 63 20 145/89 100 08/23/17 16:00 08/23/17 19:02 08/23/17 16:00 08/23/17 19:02 08/23/17 16:00 Intake and Output: 08/24/17 08/24/17 06:59 18:59 Intake Total 180 600 Balance 180 600 - Medications Medications: Current Medications Acetaminophen (Tylenol 325mg Tab) 650 mg PO Q4 PRN PRN Reason: Fever >100.4 F Enoxaparin Sodium (Lovenox) 30 mg SC DAILY ZAKI PRN Reason: Protocol Last Admin: 08/24/17 09:51 Dose: 30 mg Hydromorphone HCl (Dilaudid) 0.5 mg IVP Q4H PRN PRN Reason: Pain, severe (8-10) Ceftriaxone Sodium (Rocephin 1 Gram Ivpb) 1 gm in 100 mls @ 100 mls/hr IVPB DAILY ZAKI PRN Reason: Protocol Last Admin: 08/24/17 09:52 Dose: 100 mls/hr Metronidazole (Flagyl) 500 mg in 100 mls @ 100 mls/hr IVPB Q8 ZAKI PRN Reason: Protocol Last Admin: 08/24/17 06:43 Dose: 100 mls/hr Lisinopril (Zestril) 5 mg PO DAILY [facility] 234 BEDS AT [facility] Last Admin: 08/24/17 09:52 Dose: 5 mg Ondansetron HCl (Zofran Inj) 4 mg IVP Q4H PRN PRN Reason: Nausea/Vomiting Pantoprazole Sodium (Protonix Inj) 40 mg IVP DAILY [facility] 234 BEDS AT [facility] Last Admin: 08/24/17 09:52 Dose: 40 mg - Labs Labs: 08/24/17 06:30 08/24/17 06:30 PT 10.6 Seconds (9.9-11.8) 08/22/17 12:50 INR 0.98 (0.93-1.08) 08/22/17 12:50 APTT 30.6 Seconds (23.7-30.8) 08/22/17 12:50 Attending/Attestation - Attestation I have personally seen and examined this patient.: Yes I have fully participated in the care of the patient.: Yes I have reviewed all pertinent clinical information, including history, physical exam and plan: Yes Notes (Text): I have seen and examined the patient at bedside. Agree with the above note with the following additions/ exceptions: Briefly this is 57 year old male with history of brain aneurysm s/p clipping and essential HTN who presented with epigastric pain and found to have choleithiasis and suspected acute cholecystitis. He is on low fat diet and he is able to tolerate that. Denies any nausea, vomiting or abdominal pain. Continue IVF, analgesics, antiemetics and IV antibiotics. EKG revealed SB. Will hold lopressor. Will start low dose of lisinopril. Cardiac enzymes were negative. Echo normal.. HIDA prelim read is positive for cystic duct obstruction. Upon discharge patient will follow up with Dr Villalpando/ [facility] clinic. Dr Raquel Turner
--- NOTE | 2017-08-24 17:21 | NM ---
PROCEDURE: Nuclear Medicine Hepatobiliary Scan HISTORY: r/o cholecystitis RUQ pain COMPARISON: Comparison is made to the previous ultrasound of the abdomen dated 08/22/2017, CT of the abdomen and pelvis dated 08/15/2015 TECHNIQUE: 5.8 mCi of technetium 99m Mebrofenin was administered intravenously. Planar images of the abdomen were obtained at 5 min intervals to 60 mins. Delayed images were also obtained. FINDINGS: LIVER: Timely and homogenous uptake. COMMON BILE DUCT: identified at 15 mins. GALLBLADDER: Was not clearly identified SMALL BOWEL: Identified at 15 mins. IMPRESSION: The gallbladder was not clearly visualized. Findings suspicious for cholecystitis.
[2017-08-25] MEDS: metroNIDAZOLE IV 500 mg/100 ml 500 MG/100 ML BAG IVPB SCH ×3 (05:46→21:39)
[2017-08-25 07:33] LABS: ALB/GLOB RATIO 1.4 (1.1-1.8); ALKALINE PHOSPHATASE 140 U/L (38-126); ALT/SGPT 171 U/L (7-56); AST/SGOT 59 U/L (17-59); BILIRUBIN,TOTAL 1.9 mg/dL (0.2-1.3); BLOOD UREA NITROGEN 14 mg/dL (7-21); CALCIUM 8.7 mg/dL (8.4-10.5); CARBON DIOXIDE 23 mmol/L (21-33); CHLORIDE 106 mmol/L (98-107); GFR AFRICAN-AMERICAN > 60; GLUCOSE,RANDOM 119 mg/dL (70-110); POTASSIUM 3.6 mmol/L (3.6-5.0); SODIUM 140 mmol/L (132-148); TOTAL PROTEIN 6.7 g/dL (5.8-8.3)
[2017-08-25 07:36] LABS: BASO # 0.01 K/mm3 (0.0-2.0); BASO % 0.1 % (0.0-3.0); EOS # 0.1 (0.0-0.7); EOS % 0.8 % (1.5-5.0); GRAN # 6.86 (1.4-6.5); GRAN % 77.9 % (50.0-68.0); HEMATOCRIT 44.7 % (42.0-52.0); LYMPH # 1.1 (1.2-3.4); LYMPH % 12.7 % (22.0-35.0); MEAN CELL VOLUME 84.5 fl (80.0-105.0); MEAN CORPUSCULAR HEMOGLOBIN 30.8 pg (25.0-35.0); MEAN CORPUSCULAR HGB CONC 36.5 g/dl (31.0-37.0); MEAN PLATELET VOLUME 11.2 fl (7.0-11.0); MONO # 0.8 (0.1-0.6); MONO % 8.5 % (1.0-6.0); RED CELL DISTRIBUTION WIDTH 12.5 % (11.5-14.5); WHITE BLOOD COUNT 8.8 10^3/ul (4.5-11.0)
--- NOTE | 2017-08-25 08:48 | CP.PCM.PN ---
Subjective - Date & Time of Evaluation Date of Evaluation: 08/25/17 Time of Evaluation: 07:05 - Subjective Subjective: General Surgery Note for Dr. Connelly Patient seen and examined this AM. No acute event overnight. Patient resting comfortably in bed. Pain is well controlled. Patient is tolerating diet, passing gas and having BMs. Denies fever/chills, cp, sob, n/v/d. Objective - Vital Signs/Intake and Output Vital Signs (last 24 hours): Temp Pulse Resp BP Pulse Ox 98.8 F 77 20 144/97 H 95 08/25/17 06:00 08/25/17 06:00 08/25/17 06:00 08/25/17 06:00 08/25/17 06:00 Intake and Output: 08/25/17 08/25/17 06:59 18:59 Intake Total 540 Output Total 1 Balance 539 - Medications Medications: Current Medications Acetaminophen (Tylenol 325mg Tab) 650 mg PO Q4 PRN PRN Reason: Fever >100.4 F Enoxaparin Sodium (Lovenox) 30 mg SC DAILY ZAKI PRN Reason: Protocol Last Admin: 08/24/17 09:51 Dose: 30 mg Hydromorphone HCl (Dilaudid) 0.5 mg IVP Q4H PRN PRN Reason: Pain, severe (8-10) Ceftriaxone Sodium (Rocephin 1 Gram Ivpb) 1 gm in 100 mls @ 100 mls/hr IVPB DAILY ZAKI PRN Reason: Protocol Last Admin: 08/24/17 09:52 Dose: 100 mls/hr Metronidazole (Flagyl) 500 mg in 100 mls @ 100 mls/hr IVPB Q8 ZAKI PRN Reason: Protocol Last Admin: 08/25/17 05:46 Dose: 100 mls/hr Lisinopril (Zestril) 5 mg PO DAILY [facility] Last Admin: 08/24/17 09:52 Dose: 5 mg Ondansetron HCl (Zofran Inj) 4 mg IVP Q4H PRN PRN Reason: Nausea/Vomiting Pantoprazole Sodium (Protonix Inj) 40 mg IVP DAILY [facility] Last Admin: 08/24/17 09:52 Dose: 40 mg - Labs Labs: 08/25/17 06:30 08/25/17 06:30 PT 10.6 Seconds (9.9-11.8) 08/22/17 12:50 INR 0.98 (0.93-1.08) 08/22/17 12:50 APTT 30.6 Seconds (23.7-30.8) 08/22/17 12:50 - Constitutional Appears: No Acute Distress - Head Exam Head Exam: ATRAUMATIC, NORMOCEPHALIC - Eye Exam Eye Exam: Normal appearance Pupil Exam: PERRL - ENT Exam ENT Exam: Mucous Membranes Moist - Neck Exam Neck Exam: Full ROM - Respiratory Exam Respiratory Exam: NORMAL BREATHING PATTERN - Cardiovascular Exam Cardiovascular Exam: REGULAR RHYTHM - GI/Abdominal Exam GI & Abdominal Exam: Soft. absent: Distended, Firm, Guarding, Tenderness, Rebound Additional comments: medina's sign (-) - Extremities Exam Extremities Exam: Normal Capillary Refill - Back Exam Back Exam: absent: CVA tenderness (L), CVA tenderness (R) - Neurological Exam Neurological Exam: Alert, Awake, CN II-XII Intact, Oriented x3 - Psychiatric Exam Psychiatric exam: Normal Affect, Normal Mood - Skin Skin Exam: Dry, Intact, Normal Color, Warm Assessment and Plan - Assessment and Plan (Free Text) Plan: 57 M with Cholelithiasis and acute cholecystitis HIDA Scan (+) -NPO past -OR Saturday for Laparoscopic cholecystectomy -Management as per primary -Will ELLE Nguyen PGY1
[2017-08-25] MEDS: Enoxaparin 30 mg Syringe SC SCH (09:15)
[2017-08-25] MEDS: cefTRIAXone 1 gm 1 GM/100 ML BAG IVPB SCH (09:16)
--- NOTE | 2017-08-25 11:44 | CP.PCM.PN ---
<Joao Ho - Last Filed: 08/25/17 11:31> Subjective - Date & Time of Evaluation Date of Evaluation: 08/25/17 Time of Evaluation: 10:40 - Subjective Subjective: Subjective: Patient seen and examined at bedside. Resting comfortably in bed. Family is at bedside. Elevated BP noted. Patient states abdominal pain has resolved. Admits to nausea and one bout of nonbloody emesis. Diet changed to clears. Still NPO after midnight. Denies f/c/cp/sob/d/c/urinary sxs. Physical Examination: - Constitutional Appears: Non-toxic, No Acute Distress - Head Exam Head Exam: ATRAUMATIC, NORMAL INSPECTION, NORMOCEPHALIC - Eye Exam Eye Exam: EOMI, Normal appearance, PERRL - ENT Exam ENT Exam: Mucous Membranes Moist, Normal Exam - Neck Exam Neck exam: Positive for: Normal Inspection. Negative for: Lymphadenopathy, Thyromegaly - Respiratory Exam Respiratory Exam: Clear to Auscultation Bilateral, NORMAL BREATHING PATTERN - Cardiovascular Exam Cardiovascular Exam: REGULAR RHYTHM, +S1, +S2 - GI/Abdominal Exam GI & Abdominal Exam: no guarding, no rebound tenderness, + BS - Extremities Exam Extremities exam: Positive for: normal inspection - Back Exam Back exam: NORMAL INSPECTION - Neurological Exam Neurological exam: Alert, Oriented x3 - Skin Skin Exam: Normal Color Assessment and Plan: Patient is a 57 yo male with PMH of brain aneurysm, HTN presenting with mid epigastric pain for 5 days. Patient admitted and evaluated for abdominal pain and possible cholecystitis. Epigastric pain, Nausea, Vomiting - cholecystitis- HIDA positive- scheduled for OR on Saturday - Abdominal US showing cholelithiasis, mural thickening without pericholecystic fluid, equivalent cholecystitis - Patient changed to clear diet, still NPO after midnight - Hydromorphone for pain - D5W @125 - Surgery consulted, Dr. Connelly- appreciate recs- HIDA positive will schedule for OR for Saturday - AST and ALT are trending down - Continue with rocephin and metronidzole HTN- chronic - BPs trended, reviewed, and appreciated - c/w lisinopril, BP elevation likely 2/2 abdominal pain/vomiting - continue to monitor GI/DVT prophylaxis - Protonix IV - Lovenox Patient seen, case discussed with, and plan approved by attending physician, Dr. Turner. Objective - Vital Signs/Intake and Output Vital Signs (last 24 hours): Temp Pulse Resp BP Pulse Ox 98.8 F 77 20 144/97 H 95 08/25/17 06:00 08/25/17 06:00 08/25/17 06:00 08/25/17 06:00 08/25/17 06:00 Intake and Output: 08/25/17 08/25/17 06:59 18:59 Intake Total 540 Output Total 1 Balance 539 - Medications Medications: Current Medications Acetaminophen (Tylenol 325mg Tab) 650 mg PO Q4 PRN PRN Reason: Fever >100.4 F Enoxaparin Sodium (Lovenox) 30 mg SC DAILY [facility] PRN Reason: Protocol Last Admin: 08/25/17 09:15 Dose: 30 mg Hydromorphone HCl (Dilaudid) 0.5 mg IVP Q4H PRN PRN Reason: Pain, severe (8-10) Ceftriaxone Sodium (Rocephin 1 Gram Ivpb) 1 gm in 100 mls @ 100 mls/hr IVPB DAILY [facility] PRN Reason: Protocol Last Admin: 08/25/17 09:16 Dose: 100 mls/hr Metronidazole (Flagyl) 500 mg in 100 mls @ 100 mls/hr IVPB Q8 [facility] PRN Reason: Protocol Last Admin: 08/25/17 05:46 Dose: 100 mls/hr Lisinopril (Zestril) 5 mg PO DAILY [facility] Last Admin: 08/25/17 09:15 Dose: 5 mg Ondansetron HCl (Zofran Inj) 4 mg IVP Q4H PRN PRN Reason: Nausea/Vomiting Pantoprazole Sodium (Protonix Inj) 40 mg IVP DAILY [facility] Last Admin: 08/25/17 09:15 Dose: 40 mg - Labs Labs: 08/25/17 06:30 08/25/17 06:30 PT 10.6 Seconds (9.9-11.8) 08/22/17 12:50 INR 0.98 (0.93-1.08) 08/22/17 12:50 APTT 30.6 Seconds (23.7-30.8) 08/22/17 12:50 <Raquel Turner - Last Filed: 08/25/17 14:26> Objective - Vital Signs/Intake and Output Vital Signs (last 24 hours): Temp Pulse Resp BP Pulse Ox 98.8 F 77 20 144/97 H 95 08/25/17 06:00 08/25/17 06:00 08/25/17 06:00 08/25/17 06:00 08/25/17 06:00 Intake and Output: 08/25/17 08/25/17 06:59 18:59 Intake Total 540 Output Total 1 Balance 539 - Medications Medications: Current Medications Acetaminophen (Tylenol 325mg Tab) 650 mg PO Q4 PRN PRN Reason: Fever >100.4 F Enoxaparin Sodium (Lovenox) 30 mg SC DAILY [facility] PRN Reason: Protocol Last Admin: 08/25/17 09:15 Dose: 30 mg Hydromorphone HCl (Dilaudid) 0.5 mg IVP Q4H PRN PRN Reason: Pain, severe (8-10) Ceftriaxone Sodium (Rocephin 1 Gram Ivpb) 1 gm in 100 mls @ 100 mls/hr IVPB DAILY [facility] PRN Reason: Protocol Last Admin: 08/25/17 09:16 Dose: 100 mls/hr Metronidazole (Flagyl) 500 mg in 100 mls @ 100 mls/hr IVPB Q8 [facility] PRN Reason: Protocol Last Admin: 08/25/17 13:30 Dose: 100 mls/hr Lisinopril (Zestril) 10 mg PO DAILY [facility] Ondansetron HCl (Zofran Inj) 4 mg IVP Q4H PRN PRN Reason: Nausea/Vomiting Pantoprazole Sodium (Protonix Inj) 40 mg IVP DAILY [facility] Last Admin: 08/25/17 09:15 Dose: 40 mg - Labs Labs: 08/25/17 06:30 08/25/17 06:30 PT 10.6 Seconds (9.9-11.8) 08/22/17 12:50 INR 0.98 (0.93-1.08) 08/22/17 12:50 APTT 30.6 Seconds (23.7-30.8) 08/22/17 12:50 Attending/Attestation - Attestation I have personally seen and examined this patient.: Yes I have fully participated in the care of the patient.: Yes I have reviewed all pertinent clinical information, including history, physical exam and plan: Yes Notes (Text): I have seen and examined the patient at bedside. Agree with the above note with the following additions/ exceptions: Briefly this is 57 year old male with history of brain aneurysm s/p clipping and essential HTN who presented with epigastric pain and found to have choleithiasis and suspected acute cholecystitis. HIDA is positive for cystic duct obstruction. He has nausea, vomiting and abdominal pain this morning. Advised pateint to stake only clear liquid. He is scheduled for surgery tomorrow. Continue IVF, analgesics, antiemetics and IV antibiotics. Increase lisinopril as bp is still high. Cardiac enzymes were negative. Echo normal.. HIDA prelim read is positive for cystic duct obstruction. Upon discharge patient will follow up with Dr Villalpando/ [facility] [place] clinic. Dr Raquel Turner
[2017-08-26 06:00] LABS: BASO # 0.02 K/mm3 (0.0-2.0); BASO % 0.3 % (0.0-3.0); EOS # 0.2 (0.0-0.7); EOS % 3.3 % (1.5-5.0); GRAN # 3.55 (1.4-6.5); GRAN % 56.3 % (50.0-68.0); HEMATOCRIT 46.3 % (42.0-52.0); LYMPH # 1.8 (1.2-3.4); LYMPH % 28.1 % (22.0-35.0); MEAN CELL VOLUME 85.7 fl (80.0-105.0); MEAN CORPUSCULAR HEMOGLOBIN 30.7 pg (25.0-35.0); MEAN CORPUSCULAR HGB CONC 35.9 g/dl (31.0-37.0); MEAN PLATELET VOLUME 10.8 fl (7.0-11.0); MONO # 0.8 (0.1-0.6); RED CELL DISTRIBUTION WIDTH 12.8 % (11.5-14.5); WHITE BLOOD COUNT 6.3 10^3/ul (4.5-11.0)
[2017-08-26] MEDS: metroNIDAZOLE IV 500 mg/100 ml 500 MG/100 ML BAG IVPB SCH ×3 (06:02→22:01)
[2017-08-26 06:15] LABS: ALB/GLOB RATIO 1.3 (1.1-1.8); ALKALINE PHOSPHATASE 104 U/L (38-126); ALT/SGPT 138 U/L (7-56); AST/SGOT 84 U/L (17-59); BILIRUBIN,TOTAL 1.7 mg/dL (0.2-1.3); BLOOD UREA NITROGEN 17 mg/dL (7-21); CALCIUM 8.9 mg/dL (8.4-10.5); CARBON DIOXIDE 27 mmol/L (21-33); CHLORIDE 107 mmol/L (98-107); GFR AFRICAN-AMERICAN > 60; GLUCOSE,RANDOM 101 mg/dL (70-110); POTASSIUM 4.1 mmol/L (3.6-5.0); SODIUM 143 mmol/L (132-148); TOTAL PROTEIN 6.1 g/dL (5.8-8.3)
[2017-08-26] MEDS: cefTRIAXone 1 gm 1 GM/100 ML BAG IVPB SCH (10:16)
[2017-08-26] MEDS: Enoxaparin 30 mg Syringe SC SCH (10:17)
--- NOTE | 2017-08-26 12:08 | CP.PCM.PN ---
<Joao Ho - Last Filed: 08/26/17 12:03> Subjective - Date & Time of Evaluation Date of Evaluation: 08/26/17 Time of Evaluation: 09:40 - Subjective Subjective: Subjective: Patient seen and examined at bedside. Resting comfortably in bed. Family is at bedside. Patient states abdominal pain, N/V has resolved. Denies f/c/cp/sob/d/c/ urinary sxs. Physical Examination: - Constitutional Appears: Non-toxic, No Acute Distress - Head Exam Head Exam: ATRAUMATIC, NORMAL INSPECTION, NORMOCEPHALIC - Eye Exam Eye Exam: EOMI, Normal appearance, PERRL - ENT Exam ENT Exam: Mucous Membranes Moist, Normal Exam - Neck Exam Neck exam: Positive for: Normal Inspection. Negative for: Lymphadenopathy, Thyromegaly - Respiratory Exam Respiratory Exam: Clear to Auscultation Bilateral, NORMAL BREATHING PATTERN - Cardiovascular Exam Cardiovascular Exam: REGULAR RHYTHM, +S1, +S2 - GI/Abdominal Exam GI & Abdominal Exam: no guarding, no rebound tenderness, + BS - Extremities Exam Extremities exam: Positive for: normal inspection - Back Exam Back exam: NORMAL INSPECTION - Neurological Exam Neurological exam: Alert, Oriented x3 - Skin Skin Exam: Normal Color Assessment and Plan: Patient is a 57 yo male with PMH of brain aneurysm, HTN presenting with mid epigastric pain for 5 days. Patient admitted and evaluated for abdominal pain and possible cholecystitis. Epigastric pain, Nausea, Vomiting - cholecystitis- HIDA positive- general surgery consulted- scheduled for OR today, IOC during surgery - Abdominal US showing cholelithiasis, mural thickening without pericholecystic fluid, equivalent cholecystitis - Patient changed to clear diet, still NPO after midnight - Hydromorphone for pain - D5W @125 - AST and ALT are trending down - Continue with rocephin and metronidzole HTN- chronic - BPs trended, reviewed, and appreciated - c/w lisinopril, BP elevation likely 2/2 abdominal pain/vomiting - continue to monitor GI/DVT prophylaxis - Protonix IV - Lovenox Patient seen, case discussed with, and plan approved by attending physician, Dr. Charles. Objective - Vital Signs/Intake and Output Vital Signs (last 24 hours): Temp Pulse Resp BP Pulse Ox 98.6 F 69 20 108/68 95 08/26/17 00:00 10/16/17 10:15 08/26/17 00:00 08/26/17 10:15 08/26/17 00:00 Intake and Output: 08/26/17 08/26/17 06:59 18:59 Intake Total 240 Balance 240 - Medications Medications: Current Medications Acetaminophen (Tylenol 325mg Tab) 650 mg PO Q4 PRN PRN Reason: Fever >100.4 F Enoxaparin Sodium (Lovenox) 30 mg SC DAILY [facility] PRN Reason: Protocol Last Admin: 08/26/17 10:17 Dose: 30 mg Hydromorphone HCl (Dilaudid) 0.5 mg IVP Q4H PRN PRN Reason: Pain, severe (8-10) Ceftriaxone Sodium (Rocephin 1 Gram Ivpb) 1 gm in 100 mls @ 100 mls/hr IVPB DAILY [facility] PRN Reason: Protocol Last Admin: 08/26/17 10:16 Dose: 100 mls/hr Metronidazole (Flagyl) 500 mg in 100 mls @ 100 mls/hr IVPB Q8 [facility] PRN Reason: Protocol Last Admin: 08/26/17 06:02 Dose: 100 mls/hr Lisinopril (Zestril) 10 mg PO DAILY [facility] Last Admin: 08/26/17 10:15 Dose: 10 mg Ondansetron HCl (Zofran Inj) 4 mg IVP Q4H PRN PRN Reason: Nausea/Vomiting Pantoprazole Sodium (Protonix Inj) 40 mg IVP DAILY [facility] Last Admin: 08/26/17 10:17 Dose: 40 mg - Labs Labs: 08/26/17 05:45 08/26/17 05:45 PT 10.6 Seconds (9.9-11.8) 08/22/17 12:50 INR 0.98 (0.93-1.08) 08/22/17 12:50 APTT 30.6 Seconds (23.7-30.8) 08/22/17 12:50 <Rossana Charles - Last Filed: 08/26/17 18:21> Objective - Vital Signs/Intake and Output Vital Signs (last 24 hours): Temp Pulse Resp BP Pulse Ox 98.8 F 66 19 153/82 H 98 08/26/17 15:00 08/26/17 15:00 08/26/17 15:00 08/26/17 15:00 08/26/17 15:00 Intake and Output: 08/26/17 08/26/17 06:59 18:59 Intake Total 240 Balance 240 - Medications Medications: Current Medications Acetaminophen (Tylenol 325mg Tab) 650 mg PO Q4 PRN PRN Reason: Fever >100.4 F Enoxaparin Sodium (Lovenox) 30 mg SC DAILY [facility] PRN Reason: Protocol Last Admin: 08/26/17 10:17 Dose: 30 mg Hydromorphone HCl (Dilaudid) 0.5 mg IVP Q4H PRN PRN Reason: Pain, severe (8-10) Hydromorphone HCl (Dilaudid) 0.5 mg IVP STAT PRN PRN Reason: Pain Ceftriaxone Sodium (Rocephin 1 Gram Ivpb) 1 gm in 100 mls @ 100 mls/hr IVPB DAILY [facility] PRN Reason: Protocol Last Admin: 08/26/17 10:16 Dose: 100 mls/hr Metronidazole (Flagyl) 500 mg in 100 mls @ 100 mls/hr IVPB Q8 [facility] PRN Reason: Protocol Last Admin: 08/26/17 14:00 Dose: Not Given Lactated Ringer's (Lactated Ringer's) 1,000 mls @ 80 mls/hr IV .[id number] [facility] Last Admin: 08/26/17 15:52 Dose: 80 mls/hr Lisinopril (Zestril) 10 mg PO DAILY [facility] Last Admin: 08/26/17 10:15 Dose: 10 mg Ondansetron HCl (Zofran Inj) 4 mg IVP Q4H PRN PRN Reason: Nausea/Vomiting Pantoprazole Sodium (Protonix Inj) 40 mg IVP DAILY [facility] Last Admin: 08/26/17 10:17 Dose: 40 mg - Labs Labs: 08/26/17 05:45 08/26/17 05:45 PT 10.6 Seconds (9.9-11.8) 08/22/17 12:50 INR 0.98 (0.93-1.08) 08/22/17 12:50 APTT 30.6 Seconds (23.7-30.8) 08/22/17 12:50 Attending/Attestation - Attestation I have personally seen and examined this patient.: Yes I have fully participated in the care of the patient.: Yes I have reviewed all pertinent clinical information, including history, physical exam and plan: Yes Notes (Text): 08/26/17 18:20 Attending note; Patient seen and examined with resident this morning. Patient is a 57 year old male with history of brain aneurysm s/p clipping and essential HTN who presented with epigastric pain and found to have choleithiasis and suspected acute cholecystitis. HIDA is positive for cystic duct obstruction. Plan for laparoscopic cholecystectomy today. Nothing by mouth. Continue IVF, analgesics, antiemetics and IV antibiotics. Upon discharge patient will follow up with Dr Villalpando/ [facility] [place] [facility].
[2017-08-26] MEDS ORDERED: Iohexol 240 (50 ml) ONE (12:18)
[2017-08-26] MEDS ORDERED: Bupivacaine 0.5% Inj(30mL) ONE (12:18)
[2017-08-26] MEDS ORDERED: Midazolam 2 MG/2 ML VIAL ONE (12:27)
[2017-08-26] MEDS ORDERED: Propofol 10 mg/ml Inj (20 ML) ONE (12:27)
[2017-08-26] MEDS ORDERED: Rocuronium 10 mg/ml (5 ml) ONE (12:28)
[2017-08-26] MEDS ORDERED: Neostigmine Methylsulfate 3mg/3ml Syringe IV ONE (13:54)
[2017-08-26] MEDS ORDERED: Glycopyrrolate 0.2 mg/ml (2ml vial) ONE (13:58)
--- NOTE | 2017-08-26 14:16 | RAD ---
PROCEDURE: Operative cholangiogram HISTORY: CHOLANGIOGRAM COMPARISON: TECHNIQUE: FINDINGS: Fluoroscopy was provided in the operating room. 7.6 seconds of fluoroscopy time. Two images were submitted. There are no filling defects in the common duct. Contrast flows into the duodenum without obstruction IMPRESSION: As above
--- NOTE | 2017-08-26 14:20 | PCM.SURG1 ---
Surgeon's Initial Post Op Note - Surgeon's Notes Surgeon: Dr. Connelly Cosmetic Account Coordinator: Dr. Long PGY3; Dr. Lyon PGY2 Type of Anesthesia: General Endo Pre-Operative Diagnosis: Acute Cholecystitis Operative Findings: see operative report Post-Operative Diagnosis: same Operation Performed: Laparoscopic Cholecystectomy with Intraoperative Cholangiogram Specimen/Specimens Removed: Gallbladder Estimated Blood Loss: EBL {In ML}: 10 Blood Products Given: N/A Drains Used: No Drains Post-Op Condition: Good Date of Surgery/Procedure: 08/26/17 Time of Surgery/Procedure: 14:20
--- NOTE | 2017-08-26 14:40 | PN ---
SUBJECTIVE: The patient denies any chest pain. He new complains of abdominal discomfort as well as diarrhea. PHYSICAL EXAMINATION: VITAL SIGNS: Blood pressure 108/68, heart rate 69, temperature 98.6, respiration 20. HEENT: Normocephalic. CHEST: Clear. HEART: S1 and S2 regular. EXTREMITIES: No edema. LABORATORY DATA: Today's SMA-7 is within normal limits. Hemoglobin and hematocrit, white count and platelet count are within normal limits. Echocardiographic study revealed ejection fraction in the range of 55% to 60%, trace aortic insufficiency. HIDA scan, the gallbladder was not clearly visualized. Findings suspicious for cholecystitis. ASSESSMENT: 1. Acute cholecystitis. 2. Hypertension. RECOMMENDATIONS: The patient will undergo a cholecystectomy this afternoon with postoperative telemetry monitoring. Shaheen Rooney MD
[2017-08-26] MEDS ORDERED: HYDROmorphone 0.5 mg/0.5 ml ISec IVP PRN ×2 (14:47→19:47)
[2017-08-26] MEDS ORDERED: HYDROmorphone 0.5 mg/0.5 ml ISec ONE (15:15)
[2017-08-26] MEDS: Lactated Ringer's 1,000 ML IV SCH (15:52)
[2017-08-26] MEDS ORDERED: HYDROmorphone 0.5 mg/0.5 ml ISec IVP STA ×2 (17:03→19:46)
[2017-08-27] MEDS: metroNIDAZOLE IV 500 mg/100 ml 500 MG/100 ML BAG IVPB SCH (06:02)
[2017-08-27] MEDS: Lactated Ringer's 1,000 ML IV SCH (06:02)
[2017-08-27 07:26] LABS: BASO # 0.01 K/mm3 (0.0-2.0); BASO % 0.2 % (0.0-3.0); EOS # 0.1 (0.0-0.7); EOS % 1.5 % (1.5-5.0); GRAN # 3.82 (1.4-6.5); HEMATOCRIT 41.2 % (42.0-52.0); LYMPH # 1.4 (1.2-3.4); LYMPH % 22.3 % (22.0-35.0); MEAN CELL VOLUME 86.2 fl (80.0-105.0); MEAN CORPUSCULAR HEMOGLOBIN 30.1 pg (25.0-35.0); MEAN PLATELET VOLUME 10.9 fl (7.0-11.0); MONO # 0.9 (0.1-0.6); RED CELL DISTRIBUTION WIDTH 12.7 % (11.5-14.5); WHITE BLOOD COUNT 6.2 10^3/ul (4.5-11.0)
[2017-08-27 07:43] LABS: ALB/GLOB RATIO 1.3 (1.1-1.8); ALKALINE PHOSPHATASE 81 U/L (38-126); ALT/SGPT 130 U/L (7-56); AST/SGOT 93 U/L (17-59); BLOOD UREA NITROGEN 15 mg/dL (7-21); CALCIUM 8.2 mg/dL (8.4-10.5); CARBON DIOXIDE 27 mmol/L (21-33); CHLORIDE 106 mmol/L (98-107); GFR AFRICAN-AMERICAN > 60; GLUCOSE,RANDOM 103 mg/dL (70-110); POTASSIUM 3.9 mmol/L (3.6-5.0); SODIUM 141 mmol/L (132-148); TOTAL PROTEIN 5.4 g/dL (5.8-8.3)
[2017-08-27] MEDS ORDERED: HYDROmorphone 0.5 mg/0.5 ml ISec IVP PRN (08:16)
[2017-08-27] MEDS ORDERED: Oxycodone/Acetaminophen 5/325 mg Tab PO PRN (08:16)
[2017-08-27 08:30] VITALS: BP 150/90; PULSE 76; RESP 20; TEMP 98.7; O2SAT 98
[2017-08-27] MEDS: cefTRIAXone 1 gm 1 GM/100 ML BAG IVPB SCH (09:39)
[2017-08-27] MEDS: Enoxaparin 30 mg Syringe SC SCH (09:46)
--- NOTE | 2017-08-27 11:19 | CP.PCM.DIS ---
<Joao Ho - Last Filed: 08/27/17 11:13> Provider - Provider Date of Admission: 08/22/17 16:37 Attending physician: Rossana Charles MD Primary care physician: Ant Villalpando MD Time Spent in preparation of Discharge (in minutes): 45 Diagnosis - Discharge Diagnosis (1) Cholecystitis Status: Acute Priority: Medium (2) Hypertension Status: Acute Priority: Medium Hospital Course - Lab Results Lab Results: Micro Results 08/23/17 10:03 Urine Urine Culture - Final No Growth (<1,000 CFU/ML) Most Recent Lab Values WBC 6.2 10^3/ul (4.5-11.0) 08/27/17 07:21 RBC 4.78 10^6/uL (3.5-6.1) 08/27/17 07:21 Hgb 14.4 g/dL (14.0-18.0) D 08/27/17 07:21 Hct 41.2 % (42.0-52.0) L 08/27/17 07:21 MCV 86.2 fl (80.0-105.0) 08/27/17 07:21 MCH 30.1 pg (25.0-35.0) 08/27/17 07:21 MCHC 35.0 g/dl (31.0-37.0) 08/27/17 07:21 RDW 12.7 % (11.5-14.5) 08/27/17 07:21 Plt Count 159 10^3/uL (120.0-450.0) 08/27/17 07:21 MPV 10.9 fl (7.0-11.0) 08/27/17 07:21 Gran % 62.0 % (50.0-68.0) 08/27/17 07:21 Lymph % (Auto) 22.3 % (22.0-35.0) 08/27/17 07:21 [place] % (Auto) 14.0 % (1.0-6.0) H 08/27/17 07:21 Eos % (Auto) 1.5 % (1.5-5.0) 08/27/17 07:21 Baso % (Auto) 0.2 % (0.0-3.0) 08/27/17 07:21 Gran # 3.82 (1.4-6.5) 08/27/17 07:21 Lymph # 1.4 (1.2-3.4) 08/27/17 07:21 [place] # 0.9 (0.1-0.6) H 08/27/17 07:21 Eos # 0.1 (0.0-0.7) 08/27/17 07:21 Baso # 0.01 K/mm3 (0.0-2.0) 08/27/17 07:21 ESR 15 mm/hr (0.00-15.0) 08/22/17 21:59 PT 10.6 Seconds (9.9-11.8) 08/22/17 12:50 INR 0.98 (0.93-1.08) 08/22/17 12:50 APTT 30.6 Seconds (23.7-30.8) 08/22/17 12:50 Sodium 141 mmol/L (132-148) 08/27/17 07:21 Potassium 3.9 mmol/L (3.6-5.0) 08/27/17 07:21 Chloride 106 mmol/L (98-107) 08/27/17 07:21 Carbon Dioxide 27 mmol/L (21-33) 08/27/17 07:21 Anion Gap 12 (10-20) 08/27/17 07:21 BUN 15 mg/dL (7-21) 08/27/17 07:21 Creatinine 0.9 mg/dL (0.8-1.5) 08/27/17 07:21 Est GFR ( Amer) > 60 08/27/17 07:21 Est GFR (Non-Af Amer) > 60 08/27/17 07:21 Random Glucose 103 mg/dL (70-110) 08/27/17 07:21 Calcium 8.2 mg/dL (8.4-10.5) L 08/27/17 07:21 Magnesium 2.1 mg/dL (1.7-2.2) 08/24/17 06:30 Total Bilirubin 1.0 mg/dL (0.2-1.3) 08/27/17 07:21 AST 93 U/L (17-59) H 08/27/17 07:21 ALT 130 U/L (7-56) H 08/27/17 07:21 Alkaline Phosphatase 81 U/L (38-126) 08/27/17 07:21 Lactate Dehydrogenase 1629 U/L (333-699) H 08/23/17 05:40 Total Creatine Kinase 78 U/L (35-230) 08/23/17 05:40 Troponin I < 0.01 ng/mL 08/23/17 05:40 Total Protein 5.4 g/dL (5.8-8.3) L 08/27/17 07:21 Albumin 3.0 g/dL (3.0-4.8) 08/27/17 07:21 Globulin 2.3 gm/dL 08/27/17 07:21 Albumin/Globulin Ratio 1.3 (1.1-1.8) 08/27/17 07:21 Amylase 103 U/L (35-125) 08/22/17 12:10 Lipase 98 U/L (23-300) 08/22/17 12:10 Urine Color Yellow (YELLOW) 08/23/17 10:03 Urine Appearance Sl cloudy (CLEAR) 08/23/17 10:03 Urine pH 7.0 (4.7-8.0) 08/23/17 10:03 Ur Specific [place] 1.015 (1.005-1.035) 08/23/17 10:03 Urine Protein Trace mg/dL (<30 mg/dL) H 08/23/17 10:03 Urine Glucose (UA) Negative mg/dL (NEGATIVE) 08/23/17 10:03 Urine Ketones Negative mg/dL (NEGATIVE) 08/23/17 10:03 Urine Blood Negative (NEGATIVE) 08/23/17 10:03 Urine Nitrate Negative (NEGATIVE) 08/23/17 10:03 Urine Bilirubin Moderate (NEGATIVE) H 08/23/17 10:03 Urine Urobilinogen 1.0 E.U./dL (<1 E.U./dL) H 08/23/17 10:03 Ur Leukocyte Esterase Negative [place]/uL (NEGATIVE) 08/23/17 10:03 Urine RBC 1 - 3 /hpf (0-2) 08/23/17 10:03 Urine WBC Negative /hpf (0-6) 08/23/17 10:03 Blood Type O POSITIVE 08/26/17 05:45 Antibody Screen Negative 08/26/17 05:45 BBK History Checked Patient has bt 08/26/17 05:45 - Hospital Course Hospital Course: Patient is a 57 yo male with PMH of brain aneurysm, HTN presenting with mid epigastric pain for 5 days. With the use of physical examinations, lab work, and imaging the patient was diagnosed with and treated for acute cholecystitis along with the patients other chronic medical conditions. During their hospital stay the patient was seen by general surgery and cardiology whose recommendations were both appreciated and utilized in the care for this patient. During their hospital stay the patient underwent a echocardiogram, HIDA scan, and intraoperative cholangiogram which were reviewed, appreciated, and utilized in the management of the patients clinical course. Patient also underwent a laproscopic cholecystectomy without complications. Patient was treated with antihypertensive medications, antibiotics and other empiric/ therapeutic medications. At this time the patient is medically stable for discharge. Patient understands and appreciates discharge plan. Patient instructed to follow up with primary care physicians and referrals within three to five days from discharge. Furthermore, the patient is instructed to take medications as prescribed and to return to emergency room for evaluation of intractable headache, fever, chills, dizziness, chest pain, shortness of breath , abdominal pain, nausea, vomiting, diarrhea, constipation, and urinary symptoms. This is a brief summary of the patients hospital course. Please see patient chart for full details. Discharge Exam - Head Exam Head Exam: ATRAUMATIC, NORMOCEPHALIC - Additional Findings Additional findings: - Constitutional Appears: Non-toxic, No Acute Distress - Head Exam Head Exam: ATRAUMATIC, NORMAL INSPECTION, NORMOCEPHALIC - Eye Exam Eye Exam: EOMI, Normal appearance, PERRL - ENT Exam ENT Exam: Mucous Membranes Moist, Normal Exam - Neck Exam Neck exam: Positive for: Normal Inspection. Negative for: Lymphadenopathy, Thyromegaly - Respiratory Exam Respiratory Exam: Clear to Auscultation Bilateral, NORMAL BREATHING PATTERN - Cardiovascular Exam Cardiovascular Exam: REGULAR RHYTHM, +S1, +S2 - GI/Abdominal Exam GI & Abdominal Exam: no guarding, no rebound tenderness, + BS - Extremities Exam Extremities exam: Positive for: normal inspection - Back Exam Back exam: NORMAL INSPECTION - Neurological Exam Neurological exam: Alert, Oriented x3 - Skin Skin Exam: Normal Color Discharge Plan - Discharge Medications Prescriptions: Docusate Sodium [Colace] 100 mg PO BID #10 capsule hydroCHLOROthiazide [Microzide] 12.5 mg PO DAILY #14 cap oxyCODONE/Acetaminophen [Percocet 5/325 mg Tab] 1 ea PO Q6 #10 tab - Follow Up Plan Condition: FAIR Disposition: HOME/ ROUTINE Patient education suggested?: Yes Instructions: Laparoscopic Cholecystectomy (DC) Additional Instructions: 1. Follow up with Dr. Villalpando in 1 week. 2. Follow up with Dr. Connelly in 10 days. 3. Follow up Lft. Referrals: Ant Villalpando MD [Primary Care Provider] - Yariel Connelly MD [Staff Provider] - <Rossana Charles - Last Filed: 08/27/17 15:23> Provider - Provider Date of Admission: 08/22/17 16:37 Attending physician: Rossana Charles MD Primary care physician: Ant Villalpando MD Hospital Course - Lab Results Lab Results: Micro Results 08/23/17 10:03 Urine Urine Culture - Final No Growth (<1,000 CFU/ML) Most Recent Lab Values WBC 6.2 10^3/ul (4.5-11.0) 08/27/17 07:21 RBC 4.78 10^6/uL (3.5-6.1) 08/27/17 07:21 Hgb 14.4 g/dL (14.0-18.0) D 08/27/17 07:21 Hct 41.2 % (42.0-52.0) L 08/27/17 07:21 MCV 86.2 fl (80.0-105.0) 08/27/17 07:21 MCH 30.1 pg (25.0-35.0) 08/27/17 07:21 MCHC 35.0 g/dl (31.0-37.0) 08/27/17 07:21 RDW 12.7 % (11.5-14.5) 08/27/17 07:21 Plt Count 159 10^3/uL (120.0-450.0) 08/27/17 07:21 MPV 10.9 fl (7.0-11.0) 08/27/17 07:21 Gran % 62.0 % (50.0-68.0) 08/27/17 07:21 Lymph % (Auto) 22.3 % (22.0-35.0) 08/27/17 07:21 [place] % (Auto) 14.0 % (1.0-6.0) H 08/27/17 07:21 Eos % (Auto) 1.5 % (1.5-5.0) 08/27/17 07:21 Baso % (Auto) 0.2 % (0.0-3.0) 08/27/17 07:21 Gran # 3.82 (1.4-6.5) 08/27/17 07:21 Lymph # 1.4 (1.2-3.4) 08/27/17 07:21 [place] # 0.9 (0.1-0.6) H 08/27/17 07:21 Eos # 0.1 (0.0-0.7) 08/27/17 07:21 Baso # 0.01 K/mm3 (0.0-2.0) 08/27/17 07:21 ESR 15 mm/hr (0.00-15.0) 08/22/17 21:59 PT 10.6 Seconds (9.9-11.8) 08/22/17 12:50 INR 0.98 (0.93-1.08) 08/22/17 12:50 APTT 30.6 Seconds (23.7-30.8) 08/22/17 12:50 Sodium 141 mmol/L (132-148) 08/27/17 07:21 Potassium 3.9 mmol/L (3.6-5.0) 08/27/17 07:21 Chloride 106 mmol/L (98-107) 08/27/17 07:21 Carbon Dioxide 27 mmol/L (21-33) 08/27/17 07:21 Anion Gap 12 (10-20) 08/27/17 07:21 BUN 15 mg/dL (7-21) 08/27/17 07:21 Creatinine 0.9 mg/dL (0.8-1.5) 08/27/17 07:21 Est GFR ( Amer) > 60 08/27/17 07:21 Est GFR (Non-Af Amer) > 60 08/27/17 07:21 Random Glucose 103 mg/dL (70-110) 08/27/17 07:21 Calcium 8.2 mg/dL (8.4-10.5) L 08/27/17 07:21 Magnesium 2.1 mg/dL (1.7-2.2) 08/24/17 06:30 Total Bilirubin 1.0 mg/dL (0.2-1.3) 08/27/17 07:21 AST 93 U/L (17-59) H 08/27/17 07:21 ALT 130 U/L (7-56) H 08/27/17 07:21 Alkaline Phosphatase 81 U/L (38-126) 08/27/17 07:21 Lactate Dehydrogenase 1629 U/L (333-699) H 08/23/17 05:40 Total Creatine Kinase 78 U/L (35-230) 08/23/17 05:40 Troponin I < 0.01 ng/mL 08/23/17 05:40 Total Protein 5.4 g/dL (5.8-8.3) L 08/27/17 07:21 Albumin 3.0 g/dL (3.0-4.8) 08/27/17 07:21 Globulin 2.3 gm/dL 08/27/17 07:21 Albumin/Globulin Ratio 1.3 (1.1-1.8) 08/27/17 07:21 Amylase 103 U/L (35-125) 08/22/17 12:10 Lipase 98 U/L (23-300) 08/22/17 12:10 Urine Color Yellow (YELLOW) 08/23/17 10:03 Urine Appearance Sl cloudy (CLEAR) 08/23/17 10:03 Urine pH 7.0 (4.7-8.0) 08/23/17 10:03 Ur Specific [place] 1.015 (1.005-1.035) 08/23/17 10:03 Urine Protein Trace mg/dL (<30 mg/dL) H 08/23/17 10:03 Urine Glucose (UA) Negative mg/dL (NEGATIVE) 08/23/17 10:03 Urine Ketones Negative mg/dL (NEGATIVE) 08/23/17 10:03 Urine Blood Negative (NEGATIVE) 08/23/17 10:03 Urine Nitrate Negative (NEGATIVE) 08/23/17 10:03 Urine Bilirubin Moderate (NEGATIVE) H 08/23/17 10:03 Urine Urobilinogen 1.0 E.U./dL (<1 E.U./dL) H 08/23/17 10:03 Ur Leukocyte Esterase Negative [place]/uL (NEGATIVE) 08/23/17 10:03 Urine RBC 1 - 3 /hpf (0-2) 08/23/17 10:03 Urine WBC Negative /hpf (0-6) 08/23/17 10:03 Blood Type O POSITIVE 08/26/17 05:45 Antibody Screen Negative 08/26/17 05:45 BBK History Checked Patient has bt 08/26/17 05:45 Attending/Attestation - Attestation I have personally seen and examined this patient.: Yes I have fully participated in the care of the patient.: Yes I have reviewed all pertinent clinical information, including history, physical exam and plan: Yes Notes (Text): 08/27/17 15:20 Attending note; Patient seen and examined with resident this morning. Patient is a 57 year old male with history of brain aneurysm s/p clipping and essential HTN who presented with epigastric pain and found to have choleithiasis and acute cholecystitis. HIDA is positive for cystic duct obstruction. s/p laparoscopic cholecystectomy yesterday. intraoperative cholangiogram was normal. Tolerating diet well. Ambulating fine. LFTs improving. follow-up LFT as outpatient. will be discharged home today. Upon discharge patient will follow up with Dr. Villalpando. diagnosis; Acute cholecystitis Status post lap cholecystectomy Hypertension 08/27/17 15:22
--- NOTE | 2017-08-27 13:03 | CP.PCM.PN ---
Subjective - Date & Time of Evaluation Date of Evaluation: 08/27/17 Time of Evaluation: 12:59 - Subjective Subjective: Surgery progress note for Dr. Connelly Patient seen and examined at bedside. Patient doing well with no new complaints at this time. Patient says he is tolerating his diet and is having regular BMs. Patient denies fever, chills, abdominal pain, nausea, vomiting, diarrhea, constipation, chest pain, and SOB. Objective - Vital Signs/Intake and Output Vital Signs (last 24 hours): Temp Pulse Resp BP Pulse Ox 98.7 F 76 20 150/90 98 08/27/17 08:28 08/27/17 10:00 08/27/17 08:28 08/27/17 08:28 08/27/17 08:28 Intake and Output: 08/27/17 08/27/17 06:59 18:59 Intake Total 2220 Output Total 200 Balance 2020 - Medications Medications: Current Medications Acetaminophen (Tylenol 325mg Tab) 650 mg PO Q4 PRN PRN Reason: Fever >100.4 F Enoxaparin Sodium (Lovenox) 30 mg SC DAILY [facility] PRN Reason: Protocol Last Admin: 08/27/17 09:46 Dose: Not Given Hydromorphone HCl (Dilaudid) 0.5 mg IVP Q3H PRN PRN Reason: Pain, severe (8-10) Ceftriaxone Sodium (Rocephin 1 Gram Ivpb) 1 gm in 100 mls @ 100 mls/hr IVPB DAILY [facility] PRN Reason: Protocol Last Admin: 08/27/17 09:39 Dose: 100 mls/hr Metronidazole (Flagyl) 500 mg in 100 mls @ 100 mls/hr IVPB Q8 [facility] PRN Reason: Protocol Last Admin: 08/27/17 06:02 Dose: 100 mls/hr Lactated Ringer's (Lactated Ringer's) 1,000 mls @ 80 mls/hr IV .[id number] [facility] Last Admin: 08/27/17 06:02 Dose: 80 mls/hr Lisinopril (Zestril) 10 mg PO DAILY [facility] Last Admin: 08/27/17 09:39 Dose: 10 mg Ondansetron HCl (Zofran Inj) 4 mg IVP Q4H PRN PRN Reason: Nausea/Vomiting Oxycodone/Acetaminophen (Percocet 5/325 Mg Tab) 1 tab PO Q4H PRN PRN Reason: Pain, moderate (4-7) Stop: 08/30/17 08:17 Pantoprazole Sodium (Protonix Inj) 40 mg IVP DAILY [facility] Last Admin: 08/27/17 09:39 Dose: 40 mg - Labs Labs: 08/27/17 07:21 08/27/17 07:21 PT 10.6 Seconds (9.9-11.8) 08/22/17 12:50 INR 0.98 (0.93-1.08) 08/22/17 12:50 APTT 30.6 Seconds (23.7-30.8) 08/22/17 12:50 - Constitutional Appears: Non-toxic, No Acute Distress - Head Exam Head Exam: NORMAL INSPECTION - Eye Exam Eye Exam: EOMI - ENT Exam ENT Exam: Mucous Membranes Moist - Respiratory Exam Respiratory Exam: NORMAL BREATHING PATTERN. absent: Accessory Muscle Use, Wheezes, Respiratory Distress - Cardiovascular Exam Cardiovascular Exam: REGULAR RHYTHM. absent: Bradycardia, Tachycardia - GI/Abdominal Exam GI & Abdominal Exam: Soft. absent: Distended, Tenderness Additional comments: incisions clean, dry, and intact - Extremities Exam Extremities Exam: Normal Inspection. absent: Calf Tenderness, Pedal Edema - Neurological Exam Neurological Exam: Alert, Awake - Psychiatric Exam Psychiatric exam: Normal Affect, Normal Mood - Skin Skin Exam: Dry, Normal Color, Warm Assessment and Plan - Assessment and Plan (Free Text) Assessment: 57M s/p laparoscopic cholecystectomy POD#1 Plan: - patient clear for discharge from a surgical perspective if LFTs and Tbili normalizing - F/U in Dr. Connelly's office in 1 week - Further recs per Dr. Godwin Bob
== END 2017-08-27 14:05 | disposition home or self-care (01) | DRG 419 ==
LOC: ED 10:40 → ERH 16:37 → 3RNO 19:33
PROVIDERS: ADMIT Internal Medicine; ATTEND Internal Medicine
PROC: BF131ZZ Fluoroscopy of Gallbladder and Bile Ducts using Low Osmolar Contrast (ICD-10-PCS; 2017-08-26)
PROC: 0FT44ZZ Resection of Gallbladder, Percutaneous Endoscopic Approach (ICD-10-PCS; principal; 2017-08-26 17:00)
DX: K80.00 Calculus of gallbladder with acute cholecystitis without obstruction (principal); I67.1 Cerebral aneurysm, nonruptured; I35.1 Nonrheumatic aortic (valve) insufficiency; I10 Essential (primary) hypertension; R00.1 Bradycardia, unspecified; Z87.891 Personal history of nicotine dependence; Z86.718 Personal history of other venous thrombosis and embolism